=== PATIENT | female | born 1995 | race Caucasian/White ===

== ENCOUNTER 2016-04-24 04:36 | Observation (INO) | payer BC ==
[2016-04-24] MEDS ORDERED: ONDANSETRON 4 MG/2 ML VIAL IVP ONE (04:41)
[2016-04-24] MEDS ORDERED: NS 1,000 ML IV ONE ×3 (05:12→07:35)
--- NOTE | 2016-04-24 05:18 | EDPHY ---
H & P Stated Complaint: vomiting, abd pain Time Seen by Provider: 04/24/16 05:03 HPI/ROS: HPI The patient presents with abdominal pain which began at approximately 10:00 p.m. last night. It started suddenly and has been severe. It is in her upper abdomen and radiates throughout her abdomen. It is sharp in nature. She has had about 5-6 episodes of vomiting ever since. Her last bowel movement was about 12 hours ago and was normal. She has not had any diarrhea. She does not have any fever. She has been taking Humira for the last several years for Crohn 's disease. She is followed by Dr. Kevin and has a colonoscopy pending for Tuesday.. REVIEW OF SYSTEMS Constitutional: No fever, no chills. Eyes: No discharge. ENT: No sore throat. Cardiovascular: No chest pain, no palpitations. Respiratory: No cough, no shortness of breath. Gastrointestinal: No abdominal pain, no vomiting. Genitourinary: No hematuria. Musculoskeletal: No back pain. Skin: No rashes. Neurological: No headache. PMHx: Crohn's disease Soc Hx: College student PHYSICAL General Appearance: Alert, uncomfortable appearing Eyes: Pupils equal and round no pallor or injection ENT, Mouth: Mucous membranes moist Respiratory: There are no retractions, lungs are clear to auscultation Cardiovascular: Regular rate and rhythm Gastrointestinal: Abdomen is soft with tenderness in her upper quadrants without guarding or rebound Neurological: A&O, moves all extremities Skin: Warm and dry, no rashes Musculoskeletal: Neck is supple non tender Extremities: symmetrical, full range of motion Psychiatric: Patient is oriented X 3, there is no agitation Source: Patient Exam Limitations: No limitations - Personal History LMP (Females 10-55): Unknown Current Tetanus/Diphtheria Vaccine: Yes - Medical/Surgical History Hx Asthma: No Hx Chronic Respiratory Disease: No Hx Diabetes: No Hx Cardiac Disease: No Hx Renal Disease: No Hx Cirrhosis: No Hx Alcoholism: No Hx HIV/AIDS: No Hx Splenectomy or Spleen Trauma: No Other PMH: PMHx: Crohn's, anemia. PSHx: denies - Social History Smoking Status: Never smoked Constitutional: Initial Vital Signs Temperature (C) 36.7 C 04/24/16 04:38 Heart Rate 120 H 04/24/16 04:38 Respiratory Rate 17 04/24/16 04:38 Blood Pressure 114/82 H 04/24/16 04:38 O2 Sat (%) 97 04/24/16 04:38 O2 Delivery Mode Nasal Cannula O2 (L/minute) 2 Allergies/Adverse Reactions: sulfa Allergy (Uncoded 05/03/13 21:16) Home Medications: Medication Instructions Recorded Herbals/Supplements -Info Only 1 each PO AD 05/04/13 Sertraline HCl [Zoloft] 50 mg PO DAILY 05/04/13 Vancomycin [Vancocin 250MG (RX)] 250 mg PO QID 05/04/13 azaTHIOprine [Imuran 50 mg (RX)] 50 mg PO TID 05/04/13 Medical Decision Making - Diagnostics Imaging: CT scan abdomen pelvis with IV contrast demonstrates mild wall thickening of the terminal ilium, discussed with Dr. Guerrier of Radiology. ED Course/Re-evaluation: 5:00 a.m.- Initial patient encounter. She is getting IV fluids, Zofran, morphine. I will check basic labs. 7:00 a.m.- The patient has ongoing abdominal pain despite several rounds of pain medication. Her labs are all unremarkable, though we are waiting on a urinalysis. She is awaiting a CT scan of her abdomen currently. I have discussed the case with Dr. Roth of Gastroenterology who recommends fluids and pain medication as needed. They will be able to consult on her as an inpatient and may have further recommendations based on her CT scan. The case was discussed with of the hospitalist service and she agrees for admission. Differential Diagnosis: This is a 20-year-old female with history of Crohn's disease who comes in with vomiting and upper abdominal pain. Differential diagnosis includes Crohn's flare, gastritis, gastroenteritis, biliary colic. - Data Points Laboratory Results: Laboratory Results 04/24/16 05:10 04/24/16 05:10 04/24/16 05:10 WBC 6.85 10^3/uL (3.80-9.50) RBC 4.75 10^6/uL (4.18-5.33) Hgb 14.4 g/dL (12.6-16.3) Hct 40.6 % (38.0-47.0) MCV 85.5 fL (81.5-99.8) MCH 30.3 pg (27.9-34.1) MCHC 35.5 g/dL (32.4-36.7) RDW 12.5 % (11.5-15.2) Plt Count 279 10^3/uL (150-400) MPV 9.7 fL (8.7-11.7) Neut % (Auto) 81.5 H % (39.3-74.2) Lymph % (Auto) 6.4 L % (15.0-45.0) [place] % (Auto) 9.9 % (4.5-13.0) Eos % (Auto) 1.3 % (0.6-7.6) Baso % (Auto) 0.6 % (0.3-1.7) Nucleat RBC Rel Count 0.0 % (0.0-0.2) Absolute Neuts (auto) 5.58 10^3/uL (1.70-6.50) Absolute Lymphs (auto) 0.44 L 10^3/uL (1.00-3.00) Absolute Monos (auto) 0.68 10^3/uL (0.30-0.80) Absolute Eos (auto) 0.09 10^3/uL (0.03-0.40) Absolute Basos (auto) 0.04 10^3/uL (0.02-0.10) Absolute Nucleated RBC 0.00 10^3/uL (0-0.01) Immature Gran % 0.3 % (0.0-1.1) Immature Gran # 0.02 10^3/uL (0.00-0.10) ESR 10 MM/HR (0-20) Sodium 141 mEq/L (134-144) Potassium 3.9 mEq/L (3.5-5.2) Chloride 107 mEq/L (97-110) Carbon Dioxide 23 mEq/l (22-31) Anion Gap 11 mEq/L (8-16) BUN 13 mg/dL (7-23) Creatinine 0.7 mg/dL (0.6-1.0) Estimated GFR > 60 Glucose 94 mg/dL (70-100) Calcium 9.5 mg/dL (8.5-10.4) Total Bilirubin 0.9 mg/dL (0.1-1.4) Conjugated Bilirubin 0.5 mg/dL (0.0-0.5) Unconjugated Bilirubin 0.4 mg/dL (0.0-1.1) AST 26 IU/L (14-46) ALT 31 IU/L (9-52) Alkaline Phosphatase 55 IU/L (38-126) C-Reactive Protein 6.4 mg/L (<10.0) Total Protein 8.0 g/dL (6.3-8.2) Albumin 4.5 g/dL (3.5-5.0) Lipase 57.0 IU/L (23-300) Beta HCG, Qual NEGATIVE Medications Given: Discontinued Medications Hydromorphone HCl (Dilaudid) 0.5 mg IVP EDNOW ONE Stop: 04/24/16 06:38 Last Admin: 04/24/16 06:52 Dose: 0.5 mg Sodium Chloride (Ns) 1,000 mls @ 0 mls/hr IV ONCE ONE PRN Reason: Wide Open Stop: 04/24/16 05:13 Last Admin: 04/24/16 05:13 Dose: 1,000 mls Sodium Chloride (Ns) 1,000 mls @ 0 mls/hr IV ONCE ONE PRN Reason: Wide Open Stop: 04/24/16 06:04 Last Admin: 04/24/16 06:08 Dose: 1,000 mls Morphine Sulfate (Morphine) 4 mg IVP EDNOW ONE Stop: 04/24/16 05:13 Last Admin: 04/24/16 05:21 Dose: 4 mg Ondansetron HCl (Zofran) 4 mg IVP EDNOW ONE Stop: 04/24/16 04:42 Last Admin: 04/24/16 05:11 Dose: 4 mg Departure - Departure Disposition: [facility] Inpatient Acute Clinical Impression: Abdominal pain, Crohn's colitis Condition: Fair Referrals: Tano Glaser MD [Primary Care Provider] - As per Instructions
[2016-04-24 05:21] LABS: % IMMATURE GRANULYOCYTES 0.3 % (0.0-1.1); ABSOLUTE IMMATURE GRANULOCYTES 0.02 10^3/uL (0.00-0.10); ADD DIFF? NO; ADD MORPH? NO; ADD SCAN? NO; ATYPICAL LYMPHOCYTE FLAG 10 (0-99); FRAGMENT RBC FLAG 0 (0-99); HEMATOCRIT 40.6 % (38.0-47.0); HEMOGLOBIN 14.4 g/dL (12.6-16.3); LEFT SHIFT FLG 0 (0-99); LIPEMIA HEMOLYSIS FLAG 90 (0-99); MEAN CELL HEMOGLOBIN 30.3 pg (27.9-34.1); MEAN CELL HEMOGLOBIN CONCENTR. 35.5 g/dL (32.4-36.7); MEAN CELL VOLUME 85.5 fL (81.5-99.8); MEAN PLATELET VOLUME 9.7 fL (8.7-11.7); PLATELET CLUMPS FLAG 30 (0-99); PLATELET COUNT 279 10^3/uL (150-400); RED BLOOD CELL COUNT 4.75 10^6/uL (4.18-5.33); RED CELL DISTRIBUTION WIDTH 12.5 % (11.5-15.2)
[2016-04-24 05:46] LABS: ALANINE AMINOTRANSFERASE 31 IU/L (9-52); ALBUMIN 4.5 g/dL (3.5-5.0); ALKALINE PHOSPHATASE 55 IU/L (38-126); ANION GAP 11 mEq/L (8-16); ASPARTATE AMINOTRANSFERASE 26 IU/L (14-46); BILIRUBIN,TOTAL 0.9 mg/dL (0.1-1.4); BILIRUBIN-CONJUGATED 0.5 mg/dL (0.0-0.5); BILIRUBIN-UNCONJUGATED 0.4 mg/dL (0.0-1.1); CALCIUM 9.5 mg/dL (8.5-10.4); CARBON DIOXIDE 23 mEq/l (22-31); CHLORIDE 107 mEq/L (97-110); CREATININE 0.7 mg/dL (0.6-1.0); GLOMERULAR FILTRATION RATE > 60; GLUCOSE 94 mg/dL (70-100); POTASSIUM 3.9 mEq/L (3.5-5.2); SODIUM 141 mEq/L (134-144)
[2016-04-24 05:58] LABS: SEDIMENTATION RATE 10 MM/HR (0-20)
[2016-04-24 06:05] LABS: C-REACTIVE PROTEIN 6.4 mg/L (<10.0)
[2016-04-24] MEDS ORDERED: HYDROmorphONE/DILAUDID 1 MG/ML SYR IVP ONE (06:37)
[2016-04-24] MEDS ORDERED: IOPAMIDOL (ISOVUE-300) 100 ML BTL IV ONE (06:49)
[2016-04-24 11:58] LABS: COLOR YELLOW; LEUKOCYTE ESTERASE,URINE NEGATIVE (NEGATIVE); NITRITE,URINE NEGATIVE (NEGATIVE)
[2016-04-24] MEDS: methylPREDNISolone SOD SUCC 125 MG/2 ML VIAL IVP ONE ×2 (12:25→14:03)
[2016-04-24] MEDS: D5W 1/2 NS W/ 20 KCl/L 1,000 ML IV SCH ×2 (12:25→20:30)
[2016-04-24] MEDS: DICYCLOMINE 10 MG CAP PO PRN ×2 (12:30→18:39)
--- NOTE | 2016-04-24 12:38 | GCON ---
[f rep st] CONSULTATION GI INPATIENT CONSULTATION DATE OF CONSULTATION: 04/24/2016 REFERRING PHYSICIAN: Adwoa Simpson MD HISTORY OF PRESENT ILLNESS: Gina is a 20-year-old white female whom I am asked to see in consultation for a chief complaint of abdominal pain. This occurred acutely last night, at 10 p.m. She describes diffuse generalized abdominal pain, but worse in her upper abdomen. It is bilateral. With this, she has had nausea, vomiting. She denies diarrhea. She states she feels "warm, " but denies fever. She denies blood in her stool. She has a known history of Crohn disease, which at least on a colonoscopy last year involved mostly the terminal ileum and the ileocecal valve. For this, she is on Humira every other week. She states she has done quite well for almost 3 years. When she does have flares of her Crohn's, she states the symptoms are somewhat similar to her admitting presentation, with abdominal pain. She is normally seen by Dr. Glaser. She was seen recently in our GI office, April 12 , by GAIL Umana. There is some report that she also has Crohn's of the stomach. Upper endoscopy in 2013 had some mild findings noted, with very unremarkable biopsies, however. Of note, she is scheduled for a colonoscopy in 1 week, for somewhat unclear reasons. Her last colonoscopy was with Dr. Glaser on February 25, 2015. PAST MEDICAL HISTORY: 1. As above. 2. Otherwise, unremarkable. MEDICATIONS: She is on Zoloft. Outpatient medications include the above. ALLERGIES: Include sulfur. SOCIAL HISTORY: She is single. Her mom's name is Rocio. Her boyfriend's name is Mars. FAMILY HISTORY: Positive for Crohn's. REVIEW OF SYSTEMS: Positive pertinent review of systems as per my HPI. Otherwise, her review of systems is negative, making a total of 10 systems. PHYSICAL EXAM: GENERAL: Reveals a nontoxic-appearing woman. VITAL SIGNS: Stable. SKIN: Warm, dry. HEENT: Pupils equal, round, reactive to light and accommodation. Oropharynx without masses, moist mucosa. NECK: Without thyromegaly, no lymphadenopathy. HEART: Normal S2, normal PMI. LUNGS: Clear to auscultation and percussion anteriorly. ABDOMEN: Diffuse tenderness throughout. No rebound. RECTAL: Deferred. EXTREMITIES: Without cyanosis or clubbing. NEUROLOGIC: She is grossly nonfocal, with cranial nerves grossly intact. Orientation, insight appropriate. MUSCULOSKELETAL: Strength is grossly normal throughout, normal station. LABORATORY DATA: Include negative beta hCG. Normal CBC. Normal ESR, CRP. Normal lipase. Normal comprehensive metabolic panel. Urinalysis is pending. CT scan of the abdomen and pelvis with IV contrast is unremarkable, except for possibly some very mild terminal ileitis. ASSESSMENT: Acute generalized abdominal pain, with nausea, vomiting. This may represent just a viral gastroenteritis. Irritable bowel syndrome is also possible. A flare of her known Crohn's is possible, but somewhat less likely. Her symptoms are diffuse, which is unusual for Crohn's. In addition, besides negative inflammatory markers, her CT scan is relatively unremarkable. However , she does equate these symptoms to past Crohn's flare symptoms. PLAN: 1. IV fluids. 2. Dicyclomine as needed. 3. Regular diet. 4. In case this does represent a mild flare of her Crohn's, we will begin IV Solu-Medrol, but at a relatively low dose. If this helps, upon discharge, we can use a short course of Entocort. Most of her recent documented Crohn's involved just the ileum and ileocecal valve. 5. Depending on how she does, we might cancel her colonoscopy scheduled as an outpatient next week, or potentially change it to Dr. Glaser. Thank you for allowing me to help in the care of this patient. /[id number]/MODL MTDD
[2016-04-24] MEDS ORDERED: ALPRAZolam 0.5 MG TAB PO PRN (13:36)
[2016-04-24] MEDS ORDERED: Lisdexamfetamine Dimesylate [Vyvanse] 50 MG PO PRN (13:36)
[2016-04-24] MEDS ORDERED: ACETAMINOPHEN 325 MG TAB PO PRN (13:38)
[2016-04-24] MEDS ORDERED: PROMETHAZINE HCL 25 MG/ML INJ IVP PRN (13:38)
[2016-04-24] MEDS ORDERED: PROMETHAZINE HCL 25 MG TAB PO PRN (13:38)
[2016-04-24] MEDS ORDERED: ONDANSETRON 4 MG/2 ML VIAL IVP PRN (13:38)
[2016-04-24] MEDS ORDERED: ONDANSETRON DISINTEGRATING 4 MG TAB PO PRN (13:38)
--- NOTE | 2016-04-24 14:03 | GHP ---
[f rep st] HISTORY AND PHYSICAL DATE OF ADMISSION: 04/24/2016 HISTORY OF PRESENT ILLNESS: The patient is a 20-year-old female with a history of Crohn disease predominantly located in the ileocecal valve and internal iliac , who presents with abdominal pain. She feels this is similar to her previous episodes of Crohn flare. She has had some nausea and vomiting, but no diarrhea. Diarrhea not typically part of her Crohn flare. She does have a history of 1 episode of C difficile in the past. She has not had subjective fever, chills. No melena or bright red blood per rectum or hematemesis or coffee-grounds emesis. She does not smoke cigarettes. Drinks minimal alcohol. There has been no recent travel. No one around has been sick. REVIEW OF SYSTEMS: Complete 10-point review of systems conducted, and negative except as noted in HPI. PAST MEDICAL HISTORY: Of Crohn's, fatigue, depression. ALLERGIES: Sulfa. HOME MEDICATIONS: Humira, sertraline, norethindrone, estradiol, multivitamin, dextroamphetamine, and alprazolam at night. SOCIAL HISTORY: Much has been in the [facility]. She is a student at the [employer]. Mother is at the bedside. FAMILY HISTORY: Her aunt had Crohn disease. Her aunt is her mother's identical twin. PHYSICAL EXAM: PRESENTING VITAL SIGNS: Temperature 36.7, blood pressure 114/82 , pulse 120, breathing 17 times a minute, 97% on room air. GENERAL: In no acute distress. HEENT: Sclerae anicteric. Oropharynx clear. Mucous membranes moist. NECK. No lymphadenopathy. JVD. LUNGS: Clear to auscultation bilaterally. HEART: S1, S2. ABDOMEN: Soft. Bowel sounds are hypoactive, but present. There is no rebound or guarding. It is nondistended. LOWER EXTREMITIES: Without edema. Calves are nontender. SKIN: Without rash. NEUROLOGIC: Nonfocal. LABORATORY DATA: White count 6.8, hematocrit 40.6, platelets are 279,000. Sodium 141, potassium 3.9, chloride 107, bicarbonate 22, BUN 13, creatinine 0.7 , glucose 94, LFTs normal. Lipase normal. Beta hCG is negative. UA is unremarkable. Abdominal CT images reviewed/interpreted by me, shows possible thickening of the terminal ileum. I discussed the case with Dr. Carrington Roth of GI. ASSESSMENT/PLAN: A 20-year-old female, mild Crohn flare. 1. Mild Crohn flare: The patient presented with abdominal pain and a paucity of other findings. At this point in time, I think it is reasonable and appropriate to treat her for Crohn flare as has been initiated by Dr. Roth. 2. History of Clostridium difficile: She is not having diarrhea. Will repeat Clostridium difficile follow up on the results. 3. Prophylaxis: Pharmacologic prophylaxis indicated. 4. Nausea: IV Phenergan, IV Zofran. 5. Pain: IV Dilaudid. /[id number]/MODL MTDD
[2016-04-24] MEDS: HYDROmorphONE/DILAUDID 1 MG/ML SYR IVP PRN ×3 (14:19→22:46)
--- NOTE | 2016-04-24 16:23 | CT ---
CT Scan of the Abdomen and Pelvis (With Contrast) 24 April 2016 at 0706 Hours Indication: Abdominal pain. History of Crohn's. Comparison: April 2013. Technique: 80 mL of Isovue-300 were given intravenously by machine power injection. Multidetector [facility] imaging was performed from the diaphragm to the symphysis pubis. Dose reduction techniques w ere utilized. Findings Abdomen: The lung bases are clear. No focal liver lesion is identified. Gallbladder is unremarkable. Pancreas is normal in size and appearance. Spleen is unremarkable. Both adrenal glands are normal in size and appearance. Both kidneys enhance normally without evidence for mass or hydronephrosis. A few scattered mesenteric lymph nodes are seen which are smaller than the comparison exam. Pelvis: There is mild bowel wall thickening in the distal ileum with no significant stranding in the adjacent mesentery, a little less predominant than the comparison exam. No evidence for small bowel o bstruction. Appendix is visualized and normal in size and appearance. No significant free fluid in th e pelvis. No evidence for bladder calculus. Impression: Findings suggesting mild bowel wall thickening in the distal ileum which could be seconda ry to patient's underlying Crohn disease. No evidence for small bowel obstruction. Prior visualized m esenteric lymphadenopathy is less predominant, likely reactive. Results discussed with Dr. Adwoa Simpson at 0719 hours on 24 April 2016.
[2016-04-24] MEDS: methylPREDNISolone SOD SUCC 40 MG/ML VIAL IVP SCH (20:31)
[2016-04-24 20:37] VITALS: RESP 16
[2016-04-24] MEDS ORDERED: ZOLPIDEM TARTRATE 5 MG TAB PO PRN (21:00)
[2016-04-24] MEDS ORDERED: NORETHINDRONE E ESTRADIOL IRON PO SCH (21:00)
[2016-04-24] MEDS ORDERED: SERTRALINE HCL 100 MG TAB PO SCH (21:00)
[2016-04-25] MEDS: DICYCLOMINE 10 MG CAP PO PRN ×2 (05:51→12:12)
[2016-04-25] MEDS: D5W 1/2 NS W/ 20 KCl/L 1,000 ML IV SCH (05:51)
[2016-04-25] MEDS: HYDROmorphONE/DILAUDID 1 MG/ML SYR IVP PRN ×2 (05:51→10:20)
[2016-04-25 06:00] LABS: % IMMATURE GRANULYOCYTES 0.2 % (0.0-1.1); ABSOLUTE IMMATURE GRANULOCYTES 0.01 10^3/uL (0.00-0.10); ADD DIFF? NO; ADD MORPH? NO; ADD SCAN? NO; ATYPICAL LYMPHOCYTE FLAG 50 (0-99); FRAGMENT RBC FLAG 0 (0-99); HEMATOCRIT 35.9 % (38.0-47.0); HEMOGLOBIN 12.5 g/dL (12.6-16.3); LEFT SHIFT FLG 0 (0-99); LIPEMIA HEMOLYSIS FLAG 90 (0-99); MEAN CELL HEMOGLOBIN 30.9 pg (27.9-34.1); MEAN CELL HEMOGLOBIN CONCENTR. 34.8 g/dL (32.4-36.7); MEAN CELL VOLUME 88.9 fL (81.5-99.8); MEAN PLATELET VOLUME 10.1 fL (8.7-11.7); PLATELET CLUMPS FLAG 20 (0-99); PLATELET COUNT 239 10^3/uL (150-400); RED BLOOD CELL COUNT 4.04 10^6/uL (4.18-5.33); RED CELL DISTRIBUTION WIDTH 12.6 % (11.5-15.2)
[2016-04-25 06:12] LABS: ANION GAP 5 mEq/L (8-16); CALCIUM 8.1 mg/dL (8.5-10.4); CARBON DIOXIDE 27 mEq/l (22-31); CHLORIDE 107 mEq/L (97-110); CREATININE 0.6 mg/dL (0.6-1.0); GLOMERULAR FILTRATION RATE > 60; GLUCOSE 139 mg/dL (70-100); POTASSIUM 4.5 mEq/L (3.5-5.2); SODIUM 139 mEq/L (134-144)
[2016-04-25 08:55] VITALS: BP 82/52; PULSE 71; TEMP 98; O2SAT 95
[2016-04-25] MEDS: methylPREDNISolone SOD SUCC 40 MG/ML VIAL IVP SCH (08:59)
[2016-04-25] MEDS ORDERED: ENOXAPARIN 40 MG/0.4 ML SYR SC SCH (09:00)
[2016-04-25] MEDS ORDERED: MULTIVITAMINS 1 EACH TAB PO SCH (09:00)
--- NOTE | 2016-04-25 11:06 | HOSPPROG ---
Hospitalist Progress Note Assessment/Plan: 20 yo F w possible mild crohn's flare abd pain: improved will dc on entocort and nausea meds home today Subjective: feels much better. eating. ready for dc Objective: Vital Signs Temp Pulse Resp BP Pulse Ox 36.6 C 71 16 82/52 L 95 04/25/16 08:52 04/25/16 08:52 04/25/16 08:52 04/25/16 08:52 04/25/16 08:52 Laboratory Results 04/25/16 05:40 04/25/16 05:40 04/24/16 04/25/16 04/26/16 05:59 05:59 05:59 Intake Total 1200 Balance 1200 - Physical Exam Constitutional: no apparent distress, appears nourished Eyes: PERRL, anicteric sclera Ears, Nose, Mouth, Throat: moist mucous membranes, hearing normal Cardiovascular: regular rate and rhythym, no murmur, rub, or gallop Respiratory: no respiratory distress, no rales or rhonchi Gastrointestinal: normoactive bowel sounds, soft, non-tender abdomen, No guarding, No rebound, No distension Genitourinary: no bladder fullness, No salas in urethra Skin: warm, normal color Musculoskeletal: full muscle strength, no muscle tenderness Neurologic: AAOx3 ICD10 Worksheet Patient Problems: Problems Problem Status Diagnosed Abdominal pain Acute Crohn's colitis Acute Clostridium difficile infection Acute SIRS (systemic inflammatory response syndrome) Acute
--- NOTE | 2016-04-25 11:22 | SOAPPROG ---
SOAP Progress Note Assessment/Plan: Assessment/Plan: Acute abdominal pain, nausea, vomiting. Now, doing better. ? viral gastroenteritis. ? mild flare of Crohn's. - agree with d/c home. Would d/c her on entocort, 9 mg daily for six weeks, then 6 mg daily for two weeks, then none. - I will arrange G.I. f/u with Dr. Glaser (her outpt G.I. doc). I will also d/w him whether he wishes to do a colonoscopy on her as an outpt. or not. Thanks! 04/25/16 11:10 Subjective: cc: abdominal pain Doing better, with much less abdominal pain, N/V. No rigors. Objective: Vital Signs Temp Pulse Resp BP Pulse Ox 36.6 C 71 16 82/52 L 95 04/25/16 08:52 04/25/16 08:52 04/25/16 08:52 04/25/16 08:52 04/25/16 08:52 Laboratory Results 04/25/16 05:40 04/25/16 05:40 04/24/16 04/25/16 04/26/16 05:59 05:59 05:59 Intake Total 1200 Balance 1200 Physical Exam - Physical Exam General Appearance: WD/WN, alert, no apparent distress EENT: PERRL/EOMI, normal ENT inspection, pharynx normal, TMs normal Neck: non-tender, full range of motion, supple, normal inspection Respiratory: chest non-tender, lungs clear, normal breath sounds Cardiac/Chest: normal peripheral pulses, regular rate, rhythm Peripheral Pulses: 2+: carotid (R), carotid (L), femoral (R), femoral (L), dorsalis-pedis (R), dorsalis-pedis (L) Abdomen: normal bowel sounds, non-tender, soft Pelvic Exam: deferred Rectal: deferred Back: Normal inspection Skin: normal color, warm/dry Lymphatic: no adenopathy Extremities: normal range of motion, non-tender, normal inspection, normal capillary refill Neuro/Psych: no motor/sensory deficits, alert, normal mood/affect, oriented x 3 ICD10 Worksheet Patient Problems: Problems Problem Status Diagnosed Abdominal pain Acute Crohn's colitis Acute Clostridium difficile infection Acute SIRS (systemic inflammatory response syndrome) Acute
--- NOTE | 2016-04-25 11:40 | GDS ---
[f rep st] DISCHARGE SUMMARY DISCHARGE DIAGNOSES: 1. Possible Crohn flare. 2. History of Crohn disease. 3. Depression. HOSPITAL COURSE: Please see admission history and physical by Dr. Deangelo Horne. The patient prese nted with abdominal pain. CT was somewhat unremarkable, showed some thickening at the terminal ileum . This was consistent with her site of Crohn's. The patient was placed on steroids and pain medicin es as well as some nausea medicines with improvement. She was eating and euvolemic and amenable for discharge. She did not have diarrhea. Stool studies were not sent. She does have a history of C difficile. I discussed the case with Dr. Carrington Roth. Recommend Entocort 4-week taper which has been provided as well as a limited prescription for anti nausea medicines and p.o. pain medicines. /[id number]/MODL
[2016-04-25] MEDS ORDERED: ADDERALL 10 MG TAB PO PRN (12:00)
== END 2016-04-25 10:40 | disposition home or self-care (01) ==
LOC: FOB 10:37
PROVIDERS: ADMIT Internal Medicine; ATTEND Internal Medicine
DX: R10.84 Generalized abdominal pain (principal); R11.2 Nausea with vomiting, unspecified; K50.90 Crohn's disease, unspecified, without complications; F32.9 Major depressive disorder, single episode, unspecified; Z79.52 Long term (current) use of systemic steroids; Z86.19 Personal history of other infectious and parasitic diseases; Z88.2 Allergy status to sulfonamides
CPT/HCPCS: 74177; G0378; 96374; J1170; J2405; Q9967

== ENCOUNTER 2016-10-21 13:34 | Emergency (ER) | payer BC ==
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
[2016-10-21 16:39] VITALS: RESP 15
[2016-10-21 17:48] VITALS: BP 103/64; PULSE 57; TEMP 98.2; O2SAT 96
== END 2016-10-21 17:47 | disposition home or self-care (01) ==
DX: S06.0X0A Concussion without loss of consciousness, initial encounter (principal); W20.8XXA Other cause of strike by thrown, projected or falling object, initial encounter; Y92.310 Basketball court as the place of occurrence of the external cause
CPT/HCPCS: L0172

== ENCOUNTER 2018-07-04 16:38 | Inpatient (IN) | payer BC, OTHER ==
[2018-07-04] MEDS ORDERED: ONDANSETRON 4 MG/2 ML VIAL ONE (17:39)
[2018-07-04] MEDS ORDERED: HYDROmorphONE/DILAUDID 2 MG/ML INJ IVP ONE ×2 (17:43→18:47)
[2018-07-04] MEDS ORDERED: ONDANSETRON 4 MG/2 ML VIAL IVP PRN (17:43)
[2018-07-04] MEDS ORDERED: NS 1,000 ML IV ONE (17:43)
--- NOTE | 2018-07-04 17:49 | EDPHY ---
General - History Smoking Status: Never smoked Time Seen by Provider: 07/04/18 17:42 Narrative: CLINICAL IMPRESSION: Nausea, vomiting, abdominal pain, UTI ASSESSMENT/PLAN: Patient is a 22-year-old female with a significant history of Crohn's status post remote bowel resection as well as recent ovarian cystic rupture presents to the emergency department with nausea, vomiting, abdominal pain, hematuria and multiple bloody stools. Patient is afebrile, she is uncomfortable appearing however not toxic-appearing. Her abdomen was soft, nondistended with diffuse tenderness and voluntary guarding. CBC revealed no evidence of leukocytosis. H&H was mildly low however similar to last visit. There was no evidence of significant acute blood loss anemia. She was guaiac negative on my examination. BMP, lipase and hepatic panel were all grossly unremarkable. Patient with concerning history of Crohn's status post bowel resection, proceeded with CT abdomen and pelvis. CT revealed no evidence of wall thickening, abscess, perforation or obstruction. Urinalysis was performed, revealed WBCs and bacteria; this was sent for culture. I have a low suspicion for recurrent ovarian cystic rupture as there was no mention of adnexal mass or significant free fluid in the pelvis on CT; she also states that this does not feel similar at all. negative, rules out ectopic. Patient with multiple reported emergency department visits over the last several weeks in [place], [place] and [place]. Query ulcerative colitis flare in light of multiple episodes of bloody diarrhea today. The patient was given Rocephin for urinary tract infection. She will be admitted to the hospitalist service for further pain control and observation. I spoke directly with Dr. Bacon who will be the admitting physician. During the patient's emergency department visit she did have low blood pressure ranging from mid 80s systolic to upper 90 systolic. In reviewing her records she is noted to have low blood pressures in the past, I do not suspect sepsis. On repeat examination prior to transfer to the floor she is much more comfortable appearing however still with diffuse abdominal tenderness with voluntary guarding, no evidence of a surgical abdomen. DIFFERENTIAL DX: Abdominal pain including but not limited to appendicitis, cholecystitis, gastritis, bowel obstruction, perforation, abscess, ovarian cyst and urinary tract infection. ED COURSE: 1754: Case discussed with Dr. Palacio, she will evaluate this patient as well. 1923: On repeat examination the patient reports that she is feeling mildly better, I discussed her reassuring findings however she is still having a significant amount of pain in the right mid and upper abdomen. Discussed admission for observation for further pain control. CHIEF COMPLAINT: Nausea, vomiting, abdominal pain, hematuria and bloody stools HPI: Patient is a 22-year-old female with a significant history of Crohn's status post bowel resection this past January as well as recent ovarian cystic rupture who presents to the emergency department with nausea, vomiting and abdominal pain. Patient reports initially 2 weeks ago she was traveling in [place] on a work trip, she started to experience right lower quadrant pain, was seen and evaluated in the emergency department and admitted for reported unstable vital signs and cystic rupture. Patient was discharged, flew back to [facility] when she proceeded to the emergency department again for re- evaluation per recommendation at her discharge. Patient was seen and evaluated again by dictionary editor last Tuesday where they performed a n ultrasound, revealed small multiple cysts and resolving recent cystic rupture, no other acute findings. Patient continues to feel poorly, she flew back from [facility] to stay with her mom and arrived last evening. She reports today that she had a sudden onset of nausea and vomiting with new and different abdominal pain located in her right mid abdomen. She reports subjective fever, has been taking Tylenol for both fever and pain with little relief. Patient is also experiencing hematuria and bright red blood per rectum with multiple loose stools today. She reports 4 episodes of emesis, denies any hematemesis. Her appetite has been down. She denies any chest pain or shortness of breath. She is generally feeling unwell. She has never had issues with hematuria, denies any dysuria or increased frequency. She is currently menstruating and feels certain that this is not blood she is seeing from her menstruation. Patient reports 5 loose bloody stools today, denies any rectal pain or history of hemorrhoids. PMH: Crohn's Pertinent Past Surgical History: Bowel resection Family History: Not contributory Social History: Denies cigarette smoking or illicit drug use REVIEW OF SYSTEMS: All other systems negative Constitutional: Fever and decreased appetite. Eyes: No discharge, vision change ENT: No sore throat, congestion, ear pain. Cardiovascular: No chest pain, no palpitations. Respiratory: No cough, no shortness of breath. Gastrointestinal: Abdominal pain, vomiting, bloody diarrhea. Genitourinary: Hematuria, no dysuria or increased frequency. No flank pain or pelvic pain. Musculoskeletal: No back pain, joint swelling, joint pain, myalgias. Skin: No rashes, color change. Neurological: No headache, dizziness, weakness. PHYSICAL EXAM: General Appearance: Alert, patient is very uncomfortable appearing however not toxic-appearing. HENT: Normocephalic, atraumatic. Bilateral external ears are normal. Bilateral tympanic membranes are normal with pearly etienne reflex. Nares are clear, mucosa is pink. Oropharynx is clear however mucosa is dry, uvula is midline. There is no tonsillar enlargement or exudate. The dentition is normal. Eyes: PERRLA, no acute vision change, nystagmus, swelling, discharge, pain or photosensitivity. Conjunctiva pale, no injection Neck: Supple, nontender, no lymphadenopathy, no midline pain, FROM. Respiratory: There are no retractions, lungs are clear to auscultation. Cardiac: Regular rate and rhythm, no murmurs or gallops. Gastrointestinal: Patient's abdomen is soft, nondistended. There is a well-healed incision in the mid upper abdomen milad umbilicus and lower abdomen without evidence of hernia. Patient is diffusely tender with voluntary guarding. No appreciable blood on rectal exam, stool is light brown. No hemorrhoids or rectal tenderness. Neurological: Alert and oriented x 3, CN 2-12 grossly intact, normal gait no ataxia, DTR's intact, normal sensation and strength Skin: Warm, dry, no rashes, no nodules on palpation. Musculoskeletal: Extremities are symmetrical, full range of motion, no tenderness, deformity, swelling, or erythema. Psychiatric: Patient is oriented X 3, there is no agitation. MEDICAL DECISION MAKING: Patient was seen independently. Secondary supervising physician at time of evaluation was Dr. Palacio, she also evaluated this patient. Diagnosis: Nausea, vomiting, abdominal pain, hematuria, bloody diarrhea. New, requires workup Summary: See Assessment and Plan for summary of ED visit Clinical lab tests: ordered / reviewed. Independent visualization of images, tracing, or specimens: Yes. Decision to obtain medical records or history from someone other than the patient: Yes, mother Review / Summarize previous medical records: Yes Discussed patient with another provider: Yes, Dr. Palacio Patient Progress: Stable, admit. (Raysa Jimenez) - Diagnostics Imaging Results: Imaging Impressions Abdomen CT 07/04/18 17:43 Impression: 1. Motion limited study with mild stool in the proximal colon with no acute intra-abdominal findings. 2. New indistinct left lower lobe nodules, most likely inflammatory or infectious. Short-term follow-up CT is recommended in 3 months to document resolution. 3. Additional findings as above. Findings discussed with Raysa Jimenez PA-C on 07/04/2018 at 18:45. Discussion: This patient was seen and examined by me. On physical exam, she is pale, abdomen is soft, right abdominal tenderness present without peritoneal signs. CT scan of the abdomen pelvis is unremarkable. Continues to have severe pain despite IV Dilaudid. Will admit for further evaluation to the hospitalist service. (Geovanna Palacio) - Objective Vital Signs: Initial Vital Signs Temperature (C) 37 C 07/04/18 16:50 Heart Rate 96 07/04/18 16:50 Respiratory Rate 16 07/04/18 16:50 Blood Pressure 98/63 L 07/04/18 16:50 O2 Sat (%) 91 L 07/04/18 16:50 O2 Delivery Mode Nasal Cannula O2 (L/minute) 4 Allergies/Adverse Reactions: sulfa Allergy (Intermediate, Uncoded 07/04/18 16:49) Vomiting Home Medications: Medication Instructions Recorded ALPRAZolam [Xanax 0.5 MG (*)] 0.5 mg PO HS PRN 04/24/16 Dextroamphetamine/Amphetamine 10 mg PO DAILY@1200 PRN 04/24/16 [Dextroamp-Amphetamin 10 mg Tab] Lisdexamfetamine Dimesylate 50 mg PO DAILY PRN 04/24/16 [Vyvanse] Multivitamins [Multivitamin (*)] 1 each PO DAILY 04/24/16 Norethindrone-E.estradiol-Iron 1 each PO DAILY 04/24/16 [Blisovi Fe 1.5-30 Tablet] Sertraline HCl [Zoloft 100mg (*)] 50 mg PO HS 04/24/16 Budesonide [Entocort EC] 9 mg PO DAILY #0 capdr...er 04/25/16 Hydrocodone/APAP 5/325 [Victor 1 each PO Q4-6PRN PRN #10 tab 10/21/16 5/325 (*)] Remicade Inj 100 mg (*) 07/04/18 Laboratory Results: Laboratory Results 07/04/18 17:27 07/04/18 17:27 07/04/18 07/04/18 07/04/18 17:47 17:40 17:27 WBC RBC Hgb POC Hgb 12.2 gm/dL L gm/dL (12.6-16.3) Hct POC Hct 36 % L % (38-47) MCV MCH MCHC RDW Plt Count MPV Neut % (Auto) Lymph % (Auto) [place] % (Auto) Eos % (Auto) Baso % (Auto) Nucleat RBC Rel Count Absolute Neuts (auto) Absolute Lymphs (auto) Absolute Monos (auto) Absolute Eos (auto) Absolute Basos (auto) Absolute Nucleated RBC Immature Gran % Immature Gran # POC Sodium 143 mEq/L mEq/L (135-145) Sodium POC Potassium 3.5 mEq/L mEq/L (3.3-5.0) Potassium POC Chloride 105 mEq/L mEq/L (97-110) Chloride Carbon Dioxide POC Total CO2 23 mEq/L mEq/L (22-31) Anion Gap POC BUN 11 mg/dL mg/dL (7-23) BUN Creatinine POC Creatinine 0.6 mg/dL mg/dL (0.6-1.0) Estimated GFR Glucose POC Glucose 85 mg/dL mg/dL (70-100) Calcium Total Bilirubin Conjugated Bilirubin Unconjugated Bilirubin AST ALT Alkaline Phosphatase Total Protein Albumin Lipase Beta HCG, Qual Urine Color Urine Appearance Urine pH Ur Specific [place] Urine Protein Urine Ketones Urine Blood Urine Nitrate Urine Bilirubin Urine Urobilinogen Ur Leukocyte Esterase Urine RBC Urine WBC Ur Epithelial Cells Calcium Oxalate Crystal Urine Bacteria Urine Mucus Urine Glucose Stool Occult Bld Scrn NEGATIVE (NEGATIVE) Patient ABO/Rh A POSITIVE Antibody Screen NEGATIVE 07/04/18 07/04/18 07/04/18 17:27 17:27 17:27 WBC 7.14 10^3/uL 10^3/uL (3.80-9.50) RBC 4.50 10^6/uL 10^6/uL (4.18-5.33) Hgb 12.5 g/dL L g/dL (12.6-16.3) POC Hgb Hct 36.6 % L % (38.0-47.0) POC Hct MCV 81.3 fL L fL (81.5-99.8) MCH 27.8 pg L pg (27.9-34.1) MCHC 34.2 g/dL g/dL (32.4-36.7) RDW 14.8 % % (11.5-15.2) Plt Count 339 10^3/uL 10^3/uL (150-400) MPV 9.9 fL fL (8.7-11.7) Neut % (Auto) 53.7 % % (39.3-74.2) Lymph % (Auto) 37.1 % % (15.0-45.0) [place] % (Auto) 6.9 % % (4.5-13.0) Eos % (Auto) 1.4 % % (0.6-7.6) Baso % (Auto) 0.8 % % (0.3-1.7) Nucleat RBC Rel Count 0.0 % % (0.0-0.2) Absolute Neuts (auto) 3.83 10^3/uL 10^3/uL (1.70-6.50) Absolute Lymphs (auto) 2.65 10^3/uL 10^3/uL (1.00-3.00) Absolute Monos (auto) 0.49 10^3/uL 10^3/uL (0.30-0.80) Absolute Eos (auto) 0.10 10^3/uL 10^3/uL (0.03-0.40) Absolute Basos (auto) 0.06 10^3/uL 10^3/uL (0.02-0.10) Absolute Nucleated RBC 0.00 10^3/uL 10^3/uL (0-0.01) Immature Gran % 0.1 % % (0.0-1.1) Immature Gran # 0.01 10^3/uL 10^3/uL (0.00-0.10) POC Sodium Sodium 139 mEq/L mEq/L (135-145) POC Potassium Potassium 3.8 mEq/L mEq/L (3.5-5.2) POC Chloride Chloride 105 mEq/L mEq/L (97-110) Carbon Dioxide 22 mEq/l mEq/l (22-31) POC Total CO2 Anion Gap 12 mEq/L mEq/L (6-14) POC BUN BUN 12 mg/dL mg/dL (7-23) Creatinine 0.7 mg/dL mg/dL (0.6-1.0) POC Creatinine Estimated GFR > 60 Glucose 85 mg/dL mg/dL (70-100) POC Glucose Calcium 9.3 mg/dL mg/dL (8.5-10.4) Total Bilirubin 0.4 mg/dL mg/dL (0.1-1.4) Conjugated Bilirubin 0.3 mg/dL mg/dL (0.0-0.5) Unconjugated Bilirubin 0.1 mg/dL mg/dL (0.0-1.1) AST 18 IU/L IU/L (14-46) ALT 30 IU/L IU/L (9-52) Alkaline Phosphatase 46 IU/L IU/L (38-126) Total Protein 8.1 g/dL g/dL (6.3-8.2) Albumin 4.8 g/dL g/dL (3.5-5.0) Lipase 95 IU/L IU/L (23-300) Beta HCG, Qual NEGATIVE Urine Color Urine Appearance Urine pH Ur Specific [place] Urine Protein Urine Ketones Urine Blood Urine Nitrate Urine Bilirubin Urine Urobilinogen Ur Leukocyte Esterase Urine RBC Urine WBC Ur Epithelial Cells Calcium Oxalate Crystal Urine Bacteria Urine Mucus Urine Glucose Stool Occult Bld Scrn Patient ABO/Rh Antibody Screen 07/04/18 16:55 WBC RBC Hgb POC Hgb Hct POC Hct MCV MCH MCHC RDW Plt Count MPV Neut % (Auto) Lymph % (Auto) [place] % (Auto) Eos % (Auto) Baso % (Auto) Nucleat RBC Rel Count Absolute Neuts (auto) Absolute Lymphs (auto) Absolute Monos (auto) Absolute Eos (auto) Absolute Basos (auto) Absolute Nucleated RBC Immature Gran % Immature Gran # POC Sodium Sodium POC Potassium Potassium POC Chloride Chloride Carbon Dioxide POC Total CO2 Anion Gap POC BUN BUN Creatinine POC Creatinine Estimated GFR Glucose POC Glucose Calcium Total Bilirubin Conjugated Bilirubin Unconjugated Bilirubin AST ALT Alkaline Phosphatase Total Protein Albumin Lipase Beta HCG, Qual Urine Color YELLOW Urine Appearance MODERATELY TURBID Urine pH 5.0 (5.0-7.5) Ur Specific [place] 1.030 (1.002-1.030) Urine Protein 1+ H (NEGATIVE) Urine Ketones NEGATIVE (NEGATIVE) Urine Blood 3+ H (NEGATIVE) Urine Nitrate NEGATIVE (NEGATIVE) Urine Bilirubin NEGATIVE (NEGATIVE) Urine Urobilinogen NEGATIVE EU EU (0.2-1.0) Ur Leukocyte Esterase 1+ H (NEGATIVE) Urine RBC 15-25 /hpf H /hpf (0-3) Urine WBC 15-25 /hpf H /hpf (0-3) Ur Epithelial Cells 2+ /lpf H /lpf (NONE-1+) Calcium Oxalate Crystal PRESENT /hpf /hpf (NONE-1+) Urine Bacteria 1+ /hpf H /hpf (NONE SEEN) Urine Mucus 2+ /lpf H /lpf (NONE-1+) Urine Glucose NEGATIVE (NEGATIVE) Stool Occult Bld Scrn Patient ABO/Rh Antibody Screen Medications Given: Discontinued Medications Hydromorphone HCl (Dilaudid) 0.5 mg IVP EDNOW ONE Stop: 07/04/18 17:44 Last Admin: 07/04/18 17:51 Dose: 0.5 mg Hydromorphone HCl (Dilaudid) 0.5 mg IVP EDNOW ONE Stop: 07/04/18 18:48 Last Admin: 07/04/18 18:56 Dose: 0.5 mg Sodium Chloride (Ns) 1,000 mls @ 0 mls/hr IV ONCE ONE PRN Reason: Wide Open Stop: 07/04/18 17:44 Last Admin: 07/04/18 17:51 Dose: 1,000 mls Ceftriaxone Sodium/Dextrose (Rocephin 1 Gm (Premix)) 50 mls @ 100 mls/hr IV EDNOW ONE PRN Reason: Protocol Stop: 07/04/18 20:13 Last Admin: 07/04/18 20:06 Dose: 50 mls Ketorolac Tromethamine (Toradol) 30 mg IVP EDNOW ONE Stop: 07/04/18 18:49 Last Admin: 07/04/18 18:58 Dose: 30 mg Ondansetron HCl (Zofran) 4 mg IVP Q4 PRN PRN Reason: Nausea/Vomiting, Can't Take PO Stop: 12/31/18 17:42 Last Admin: 07/04/18 17:51 Dose: 4 mg Point of Care Test Results: Chemistry 07/04/18 17:47 POC Sodium 143 mEq/L mEq/L (135-145) POC Potassium 3.5 mEq/L mEq/L (3.3-5.0) POC Chloride 105 mEq/L mEq/L (97-110) POC Total CO2 23 mEq/L mEq/L (22-31) POC BUN 11 mg/dL mg/dL (7-23) POC Creatinine 0.6 mg/dL mg/dL (0.6-1.0) POC Glucose 85 mg/dL mg/dL (70-100) ISTAT H&H 07/04/18 17:47 POC Hgb 12.2 gm/dL L gm/dL (12.6-16.3) POC Hct 36 % L % (38-47) Departure - Departure Disposition: [facility] Inpatient Acute Clinical Impression: Nausea & vomiting Qualifiers: Vomiting type: unspecified Vomiting Intractability: non-intractable Qualified Code(s): R11.2 - Nausea with vomiting, unspecified Abdominal pain Qualifiers: Abdominal location: unspecified location Qualified Code(s): R10.9 - Unspecified abdominal pain Condition: Good
[2018-07-04] MEDS ORDERED: IOPAMIDOL (ISOVUE-300) 100 ML BTL ONE (17:53)
[2018-07-04 18:00] LABS: PLATELET COUNT 339 10^3/uL (150-400)
[2018-07-04] MEDS ORDERED: KETOROLAC 30 MG/1 ML SDV IVP ONE (18:48)
[2018-07-04] MEDS ORDERED: ACETAMINOPHEN 325 MG TAB PO PRN (20:40)
[2018-07-04] MEDS ORDERED: NS 1,000 ML IV SCH (20:45)
[2018-07-04] MEDS: ONDANSETRON 4 MG/2 ML VIAL IVP PRN (21:38)
[2018-07-04] MEDS: HYDROmorphONE/DILAUDID 1 MG/ML INJ IVP PRN (21:40)
--- NOTE | 2018-07-04 21:53 | PDGENHP ---
History and Physical - Chief Complaint Abdominal pain, n/v - History of Present Illness Socorro Fernandes is a 22 yo M with a PMHx of Crohn's disease s/p bowel resection in 01/2018, recently ruptured ovarian cyst who presents to [facility] for R sided abdominal pain, n/v, hematochezia and hematuria. Patient reports that she was recently diagnosed with ruptured ovarian cyst with last US performed 1 week ago. Since then she has had worsening R sided/RLQ abdominal pain described as sharp and stabbing with associated nausea with episodes of non- bilious, non-bloody emesis. She also reports recent increase in loose bloody BMs. She is currently on Remicade and follows with a GI doctor [facility]. She is supposed to have colonoscopy within next month and redosing of Remicade within next week or so. She also states she has been having hematuria with some dysuria. She was recently diagnosed with a UTI and completed a short course of bactrim. History Information - Allergies/Home Medication List Allergies/Adverse Reactions: sulfa Allergy (Intermediate, Uncoded 07/04/18 16:49) Vomiting Home Medications: ALPRAZolam [Xanax 0.5 MG (*)] 0.5 mg PO HS PRN 04/24/16 [Last Taken 04/03/16] Dextroamphetamine/Amphetamine [Dextroamp-Amphetamin 10 mg Tab] 10 mg PO DAILY@ 1200 PRN 04/24/16 [Last Taken Unknown] Lisdexamfetamine Dimesylate [Vyvanse] 50 mg PO DAILY PRN 04/24/16 [Last Taken Unknown] Multivitamins [Multivitamin (*)] 1 each PO DAILY 04/24/16 [Last Taken 04/23/16] Norethindrone-E.estradiol-Iron [Blisovi Fe 1.5-30 Tablet] 1 each PO DAILY [Last Taken 04/22/16] Sertraline HCl [Zoloft 100mg (*)] 50 mg PO HS 04/24/16 [Last Taken 04/22/16] Remicade Inj 100 mg (*) 07/04/18 [Last Taken Unknown] I have personally reviewed and updated: family history, medical history, social history, surgical history - Past Medical History Additional medical history: Crohn's, Ovarian Cysts - Surgical History Reports: colectomy - Family History Positive for: non-pertinent - Social History Smoking Status: Never smoked Review of Systems Review of Systems: ROS: 10pt was reviewed & negative except for what was stated in HPI & below Physical Exam Physical Exam: Temp Pulse Resp BP Pulse Ox 36.9 C 70 17 92/55 L 97 07/04/18 21:49 07/04/18 21:49 07/04/18 21:49 07/04/18 21:49 07/04/18 21:49 O2 (L/minute) 3 Constitutional: chronically ill appearing, uncomfortable Eyes: PERRL Ears, Nose, Mouth, Throat: dry mucous membranes Cardiovascular: regular rate and rhythym Respiratory: no respiratory distress Gastrointestinal: tenderness, No guarding, No rebound Skin: warm Musculoskeletal: generalized weakness Neurologic: AAOx3 Psychiatric: interacting appropriately Lab Data & Imaging Review 07/04/18 17:27 07/04/18 17:27 WBC 7.14 10^3/uL (3.80-9.50) 07/04/18 17:27 RBC 4.50 10^6/uL (4.18-5.33) 07/04/18 17:27 Hgb 12.5 g/dL (12.6-16.3) L 07/04/18 17:27 POC Hgb 12.2 gm/dL (12.6-16.3) L 07/04/18 17:47 Hct 36.6 % (38.0-47.0) L 07/04/18 17:27 POC Hct 36 % (38-47) L 07/04/18 17:47 MCV 81.3 fL (81.5-99.8) L 07/04/18 17:27 MCH 27.8 pg (27.9-34.1) L 07/04/18 17:27 MCHC 34.2 g/dL (32.4-36.7) 07/04/18 17:27 RDW 14.8 % (11.5-15.2) 07/04/18 17:27 Plt Count 339 10^3/uL (150-400) 07/04/18 17:27 MPV 9.9 fL (8.7-11.7) 07/04/18 17:27 Neut % (Auto) 53.7 % (39.3-74.2) 07/04/18 17:27 Lymph % (Auto) 37.1 % (15.0-45.0) 07/04/18 17:27 [place] % (Auto) 6.9 % (4.5-13.0) 07/04/18 17:27 Eos % (Auto) 1.4 % (0.6-7.6) 07/04/18 17: Baso % (Auto) 0.8 % (0.3-1.7) 07/04/18 17: Nucleat RBC Rel Count 0.0 % (0.0-0.2) 07/04/18 17: Absolute Neuts (auto) 3.83 10^3/uL (1.70-6.50) 07/04/18 17: Absolute Lymphs (auto) 2.65 10^3/uL (1.00-3.00) 07/04/18 17: Absolute Monos (auto) 0.49 10^3/uL (0.30-0.80) 07/04/18 17: Absolute Eos (auto) 0.10 10^3/uL (0.03-0.40) 07/04/18 17: Absolute Basos (auto) 0.06 10^3/uL (0.02-0.10) 07/04/18 17: Absolute Nucleated RBC 0.00 10^3/uL (0-0.01) 07/04/18 17: Immature Gran % 0.1 % (0.0-1.1) 07/04/18 17: Immature Gran # 0.01 10^3/uL (0.00-0.10) 07/04/18 17:27 POC Sodium 143 mEq/L (135-145) 07/04/18 17:47 Sodium 139 mEq/L (135-145) 07/04/18 17:27 POC Potassium 3.5 mEq/L (3.3-5.0) 07/04/18 17:47 Potassium 3.8 mEq/L (3.5-5.2) 07/04/18 17:27 POC Chloride 105 mEq/L (97-110) 07/04/18 17:47 Chloride 105 mEq/L (97-110) 07/04/18 17:27 Carbon Dioxide 22 mEq/l (22-31) 07/04/18 17:27 POC Total CO2 23 mEq/L (22-31) 07/04/18 17:47 Anion Gap 12 mEq/L (6-14) 07/04/18 17:27 POC BUN 11 mg/dL (7-23) 07/04/18 17:47 BUN 12 mg/dL (7-23) 07/04/18 17:27 Creatinine 0.7 mg/dL (0.6-1.0) 07/04/18 17:27 POC Creatinine 0.6 mg/dL (0.6-1.0) 07/04/18 17:47 Estimated GFR > 60 07/04/18 17:27 Glucose 85 mg/dL (70-100) 07/04/18 17:27 POC Glucose 85 mg/dL (70-100) 07/04/18 17:47 Calcium 9.3 mg/dL (8.5-10.4) 07/04/18 17:27 Total Bilirubin 0.4 mg/dL (0.1-1.4) 07/04/18 17:27 Conjugated Bilirubin 0.3 mg/dL (0.0-0.5) 07/04/18 17:27 Unconjugated Bilirubin 0.1 mg/dL (0.0-1.1) 07/04/18 17:27 AST 18 IU/L (14-46) 07/04/18 17:27 ALT 30 IU/L (9-52) 07/04/18 17:27 Alkaline Phosphatase 46 IU/L (38-126) 07/04/18 17:27 Total Protein 8.1 g/dL (6.3-8.2) 07/04/18 17:27 Albumin 4.8 g/dL (3.5-5.0) 07/04/18 17:27 Lipase 95 IU/L (23-300) 07/04/18 17:27 Beta HCG, Qual NEGATIVE 07/04/18 17:27 Urine Color YELLOW 07/04/18 16:55 Urine Appearance MODERATELY TURBID 07/04/18 16:55 Urine pH 5.0 (5.0-7.5) 07/04/18 16:55 Ur Specific [place] 1.030 (1.002-1.030) 07/04/18 16:55 Urine Protein 1+ (NEGATIVE) H 07/04/18 16:55 Urine Ketones NEGATIVE (NEGATIVE) 07/04/18 16:55 Urine Blood 3+ (NEGATIVE) H 07/04/18 16:55 Urine Nitrate NEGATIVE (NEGATIVE) 07/04/18 16:55 Urine Bilirubin NEGATIVE (NEGATIVE) 07/04/18 16:55 Urine Urobilinogen NEGATIVE EU (0.2-1.0) 07/04/18 16:55 Ur Leukocyte Esterase 1+ (NEGATIVE) H 07/04/18 16:55 Urine RBC 15-25 /hpf (0-3) H 07/04/18 16:55 Urine WBC 15-25 /hpf (0-3) H 07/04/18 16:55 Ur Epithelial Cells 2+ /lpf (NONE-1+) H 07/04/18 16:55 Calcium Oxalate Crystal PRESENT /hpf (NONE-1+) 07/04/18 16:55 Urine Bacteria 1+ /hpf (NONE SEEN) H 07/04/18 16:55 Urine Mucus 2+ /lpf (NONE-1+) H 07/04/18 16:55 Urine Glucose NEGATIVE (NEGATIVE) 07/04/18 16:55 Stool Occult Bld Scrn NEGATIVE (NEGATIVE) 07/04/18 17:40 Patient ABO/Rh A POSITIVE 07/04/18 17:27 Antibody Screen NEGATIVE 07/04/18 17:27 Assessment & Plan Assessment: Abdominal pain (Acute) - Hx of Crohn's disease s/p partial resection in 01/2018 - Also with recent ovarian cyst rupture - Complaining of hematochezia as well as hematuria, also n/v - Differential includes Crohn's flare, ruptured ovarian cyst, UTI, gastroenteritis - CT Abd on admission without acute etiology, no colitis noted - Pain medications PRN - Will order Pelvic U/S to evaluate for ruptured ovarian cyst - Consult GI in the AM for further evaluation, possible colonoscopy - Treatment of UTI as below UTI - Recently diagnosed with UTI, s/p course of bactrim - UA positive for blood, 1+ LE, 15-25 WBC, 1+ Bacteria on admission - S/p Ceftriaxone in ED, will continue for now - F/u Urine culture results Recent Ovarian Cyst Rupture - Free fluid noted on CT - Will order Pelvic U/S as above to further evaluate - Consult DIETARY DIRECTOR in the morning if needed Crohn's Disease s/p Bowel Resection - Currently on Remicade - [facility] - Likely Crohn's flare with bloody diarrhea - Patient would like to hold off on steroids for now until seen by GI (was previously on Budesonide, has problems with Prednisone in the past) - GI consult in the AM, patient and mother would like them to discuss with primary GI [facility] - CLD for now FEN: IVF, CLD DVT PPx: Low risk Code: FULL Dispo: Admit to Medicine
[2018-07-04] MEDS ORDERED: ALPRAZolam 0.5 MG TAB PO PRN (22:57)
[2018-07-04] MEDS ORDERED: Lisdexamfetamine Dimesylate [Vyvanse] 50 MG PO PRN (22:57)
[2018-07-05] MEDS: traMADol 50 MG TAB PO PRN ×2 (02:15→16:58)
[2018-07-05] MEDS: OXYCODONE/APAP 5/325 TAB PO PRN ×4 (04:06→20:05)
[2018-07-05 05:34] LABS: PLATELET COUNT 208 10^3/uL (150-400)
[2018-07-05] MEDS: MULTIVITAMINS 1 EACH TAB PO SCH (08:46)
[2018-07-05] MEDS: SERTRALINE HCL 100 MG TAB PO SCH (08:46)
--- NOTE | 2018-07-05 09:47 | HOSPPROG ---
Hospitalist Progress Note Assessment/Plan: 22yo F with Crohn's on remicade, recent ileal resection 01/2018 presents with subacute abdominal pain and blood per rectum. #Abdominal pain, BRBPR: Either crohn's flare vs obstipation - GI consulted - Will infuse remicade while here (she is just about due for this) - Start IV solumedrol 40mg q8h - Bowel regimen - Pain control - No colonoscopy for now unless doesn't clinically improve with above management #? UTI: Only symptom is hematuria. UA appears infected although currently menstruating. - Continue ceftriaxone while awaiting urine culture #Recent ovarian cyst: None noted on pelvic US. #Anxiety: Continue prn zoloft, xanax. VTE ppx: SCDs Diet: advance as tolerates Code: full Dispo: Switch to inpatient Subjective: No further episodes of blood in stool since admission. Still with persistent RLQ abdominal pain. Nuaseated, no vomiting but hasn't eaten much. Objective: Vital Signs Temp Pulse Resp BP Pulse Ox 36.8 C 70 16 91/54 L 97 07/05/18 08:41 07/05/18 08:41 07/05/18 08:41 07/05/18 08:41 07/05/18 08:41 Laboratory Results 07/05/18 04:52 - Physical Exam Constitutional: no apparent distress, appears nourished, not in pain Eyes: PERRL, anicteric sclera, EOMI Ears, Nose, Mouth, Throat: moist mucous membranes, hearing normal, ears appear normal, no oral mucosal ulcers Cardiovascular: regular rate and rhythym, no murmur, rub, or gallop Respiratory: no respiratory distress, no rales or rhonchi Gastrointestinal: normoactive bowel sounds, no palpable masses, tenderness (RLQ) , No rebound, No distension Genitourinary: no bladder fullness, no bladder tenderness, no renal bruits Skin: no rashes or abrasions, no fluctuance, no induration Musculoskeletal: full muscle strength, no muscle tenderness, normal joint ROM Neurologic: AAOx3, sensation intact bilaterally Psychiatric: interacting appropriately, not anxious, not encephalopathic, thought process linear ICD10 Worksheet Patient Problems: Problems Problem Status Onset Abdominal pain Acute Nausea & vomiting Acute Clostridium difficile infection Acute Crohn's colitis Acute SIRS (systemic inflammatory response syndrome) Acute
[2018-07-05] MEDS ORDERED: ZOLPIDEM TARTRATE 5 MG TAB PO PRN (10:15)
[2018-07-05] MEDS ORDERED: predniSONE 20 MG TAB PO PRN (10:25)
[2018-07-05] MEDS ORDERED: diphenhydrAMINE 50 MG CAP PO ONE (10:25)
[2018-07-05] MEDS ORDERED: diphenhydrAMINE 50 MG CAP PO PRN (10:25)
[2018-07-05] MEDS ORDERED: methylPREDNISolone SOD SUCC 125 MG/2 ML VIAL IVP PRN (10:25)
[2018-07-05] MEDS ORDERED: ACETAMINOPHEN 325 MG TAB PO ONE (10:25)
[2018-07-05] MEDS ORDERED: ACETAMINOPHEN 325 MG TAB PO PRN (10:25)
[2018-07-05] MEDS ORDERED: EPINEPHrine 1 MG/ML INJ SC PRN (10:25)
[2018-07-05] MEDS ORDERED: NS 1,000 ML IV SCH (10:30)
[2018-07-05] MEDS: HYDROmorphONE/DILAUDID 1 MG/ML INJ IVP PRN ×3 (10:34→22:09)
[2018-07-05] MEDS ORDERED: methylPREDNISolone SOD SUCC 40 MG/ML VIAL IVP ONE (11:30)
--- NOTE | 2018-07-05 11:59 | PDMN ---
Medical Necessity Medical necessity: Change to inpt as of 07/05/18 @ 10:10, meets inpt criteria per MD order and [facility] [place] [id number], Inflammatory Bowel Disease, A-2 days, initially admitted as OBS presenting w/abd pain, N/V, hematochezia, and hematuria, upgraded to inpt for persistent abd pain and nausea c/w Crohn's flare, plan for IV Remicade while inpt, IV steroids, IV Dilaudid and PO pain control, IVF, IV ABX's, GI consult. 22 y/o w/hx Crohn's s/p bowel resection in 01/2018, recently ruptured ovarian cyst, recent UTI. Est lost>2MN for ongoing eval/ management of above.
[2018-07-05] MEDS ORDERED: INFLIXIMAB-DYYB 300 MG in NS 250 ML IV ONE (12:00)
[2018-07-05] MEDS ORDERED: ADDERALL 10 MG TAB PO PRN (12:00)
--- NOTE | 2018-07-05 12:39 | GCON ---
[f rep st] CONSULTATION DATE OF CONSULTATION: 07/05/2018 REFERRING PHYSICIAN: Doroteo Argueta MD REASON FOR CONSULTATION: Abdominal pain, known Crohn disease. REQUESTING PROVIDER: HISTORY OF PRESENT ILLNESS: Dr. Argueta, thank you very kindly for asking me to evaluate this patie nt for abdominal pain and bloody diarrhea in the setting of known terminal ileal Crohn disease that h as had surgical intervention for ileal stenosis. The patient is well known to me from previous evalu ations, and has known ileal and colonic Crohn disease. She was on Humira, but failed due to stenosis and recurrent abdominal symptoms, and underwent surgery for her Crohn in January of last year. She has been on Remicade since then. She had been living in [place] and more recently [place], and [place]. Earlier this year, she started to develop abdominal pain that was predominantly right sided with general malaise. The pain was constant, sharp, and intermittent, and she was found to have an ovarian cyst with rupture that was thought to possibly be the cause. She did not have a l ot of bloody diarrhea at that time. She was hospitalized in [place] for a few days and discharged. S he re-presented in [place] with worsening abdominal pain and symptoms, and was again hospitalized [facility] for [facility] bit, but it does not sound like received any treatment for Crohn disease. She saw a gyneco logist in followup, who felt the ovarian cyst had been indeed ruptured, but not really the cause of h er current symptoms or pain and not felt to be of any need for intervention. The patient has been worsening with her symptoms and flew home to be with her mom for support. She c ontinues to have significant abdominal pain, which is predominantly right lower quadrant, sharp and s tabbing, but also constant and cramping. Her bowel movements are about 4 per day and have been roe ed in character. They are more loose and watery, and associated with blood. She has been having sub jective fever. She has been nauseated with periodic episodes of vomiting. She was admitted last yadira, and had a CT scan of the abdomen and pelvis on July 04, which revealed stool in the proximal co lenka with no acute findings. There was no evidence of obstruction. There was fecalization of the ter tyson ileum noted. There was no intraabdominal fluid or intraperitoneal air. There was no mesenteri c stranding or bowel thickening. No evidence of obstruction. I am asked to assist with further eval uation and management. PAST MEDICAL HISTORY: Significant for anxiety disorder. Terminal ileal Crohn disease on Remicade. Her last Remicade was in April. She was induced with Remicade after surgery in January. Rupture d ovarian cyst on the right ovary that was treated conservatively. PAST SURGICAL HISTORY: Ileal colonic resection. SOCIAL HISTORY: No tobacco, no alcohol, and no substance abuse. She is a business controller and consu ltant. FAMILY HISTORY: Negative for inflammatory bowel disease. REVIEW OF SYSTEMS: GENERAL: She has reported malaise and subjective fever. No weight loss. Her ap petite has been bad. She has been nauseous. HEENT: Denies headache, visual disturbances, sore thro at, rhinorrhea, or ear pain. PULMONARY: No cough or shortness of breath. CARDIOVASCULAR: No chest pain, syncope, or palpitations. GI: Negative other than HPI. RHEUMATOLOGIC: No joint pain or swel ling. DERMATOLOGIC: No rash or jaundice. PSYCHIATRIC: Anxiety that is well controlled. She also has attention deficit disorder, which she says has been stabilized with Adderall. No other mood dist urbances or insomnia. She has been traveling a lot for work and feels somewhat rundown. HEMATOLOGIC : No bruising or epistaxis. GYNECOLOGIC: She has had a recent ruptured ovarian cyst, but no other gynecologic complaints such as vaginal bleeding or discharge. GENITOURINARY: Denies hematuria, dysu matthias, or flank pain. PHYSICAL EXAM: VITAL SIGNS: Blood pressure is 91/54 with a heart rate of 70. She has respirations of 16. Oxygenation is 97% on 1 L nasal cannula. T-max is 37.1 with a temperature currently of 36.8. GENERAL: An anxious-appearing female, but no acute distress. Alert and able to provide her own hi story. HEENT: Oropharynx clear. NECK: Supple. No thrush. No lymphadenopathy. No jugular venous distention. PULMONARY: Clear to auscultation bilaterally. CARDIOVASCULAR: Regular rate and rhyth m without murmur, rub, or gallop. GI: Diffusely tender abdomen, worse in the right lower quadrant wi th some voluntary guarding. No rebound. No palpable mass or lesion. Bowel sounds are normal. No d istention to the abdomen. No central tympany. No abdominal bruit. MUSCULOSKELETAL: There is no milagros int deformity, swelling, or warmth. DERMATOLOGIC: No rash or jaundice. NEUROLOGICAL: Alert to per son, place, and time. Speech and affect are normal, although she does seem a bit anxious. Motor is nonfocal. DATABASE: White blood count is 4.3, hematocrit 28.2 with an MCV of 85.7, and platelets are 208. Sod ium 143, potassium 3.5, chloride 105, bicarbonate 23, BUN 12, and creatinine 0.7. LFTs are normal. Beta hCG is negative. Lipase is normal. CT scan of the abdomen and pelvis as per the HPI, which bateman s not show any acute process other than colonic stool in the right with fecalization of the terminal ileum and no features of obstruction or really any active Crohn disease, and no other explanation for pain. IMPRESSION: 1. Known Crohn disease, ileal and colonic, on Remicade. 2. Abdominal pain, generalized, but predominantly right lower quadrant. 3. Nausea. 4. Malaise. 5. Subjective fever. 6. Recent ruptured ovarian cyst. 7. Radiographic evidence of obstipation. RECOMMENDATIONS: 1. MiraLAX 17 g once daily. 2. Initiate Remicade and will infuse that today. She is close to being due for her next infusion. I am unclear as to whether her current symptoms are just due to obstipation and the fecalization of t he ileum or active Crohn, but nonetheless we will treat this as a Crohn flare. 3. Initiate Solu-Medrol 40 mg three times daily intravenous. 4. Clear liquid diet and advance as tolerated. 5. We will consider colonoscopy to assess her Crohn disease and pain if she fails to really improve with the therapy. /[id number]/MODL
--- NOTE | 2018-07-05 13:57 | ASMTCMCOM ---
CM Note CM Note Notes: CM met with patient during rounds. Patient is a 22 year old who came in with a history of Chrohn's disease, UTI and ruptured ovarian cyst. Patient is being followed by GI doc. When medically stable she will be discharged independently. CM available to follow. Plan: Independent Date Signed: 07/05/2018 01:56 PM Electronically Signed By:Sharonda Haynes
[2018-07-05] MEDS: methylPREDNISolone SOD SUCC 40 MG/ML VIAL IVP SCH (17:46)
[2018-07-05] MEDS: ONDANSETRON DISINTEGRATING 4 MG TAB PO PRN (20:57)
[2018-07-05] MEDS: NORETHINDRONE E ESTRADIOL IRON PO SCH (21:03)
[2018-07-06] MEDS: methylPREDNISolone SOD SUCC 40 MG/ML VIAL IVP SCH ×3 (02:22→17:54)
[2018-07-06] MEDS: OXYCODONE/APAP 5/325 TAB PO PRN ×4 (02:22→22:13)
[2018-07-06] MEDS: MULTIVITAMINS 1 EACH TAB PO SCH (08:25)
[2018-07-06] MEDS: SERTRALINE HCL 100 MG TAB PO SCH (08:25)
[2018-07-06] MEDS: POLYETHYLENE GLYCOL 3350 17 GM PKT PO SCH ×2 (08:25→19:39)
--- NOTE | 2018-07-06 13:17 | HOSPPROG ---
Hospitalist Progress Note Assessment/Plan: 22yo F with Crohn's on remicade, recent ileal resection 01/2018 presents with subacute abdominal pain and one episode of blood per rectum. Symptoms not drastically changed after 1 day of IV steroids. #RLQ abdominal pain: Either crohn's flare vs obstipation vs functional - GI consulted - s/p remicade infusion yesterday - Continue IV solumedrol 40mg q8h - Bowel regimen - adding mag citrate today - Pain control - she is trying to avoid IV opioids - If symptoms not better tomorrow, GI considering EGD/colonoscopy to help elucidate cause of symptoms #? UTI: Only symptom is hematuria. UA appears infected although currently menstruating. - Continue ceftriaxone while awaiting urine culture #Recent ovarian cyst: None noted on pelvic US. #Anxiety: Continue prn zoloft, xanax. #Anemia: Somewhat lower than prior. No further rectal bleeding while here. VTE ppx: SCDs Diet: advance as tolerates Code: full Dispo: Switch to inpatient Subjective: Still with significant RLQ pain. Vomited last night. Passing gas but no BM yet. Blood in urine has resolved. Objective: Vital Signs Temp Pulse Resp BP Pulse Ox 36.9 C 82 16 87/48 L 97 07/06/18 08:00 07/06/18 08:00 07/06/18 08:00 07/06/18 08:00 07/06/18 08:00 Laboratory Results 07/06/18 04:52 07/06/18 04:52 07/05/18 07/06/18 07/07/18 05:59 05:59 05:59 Intake Total 1821 Balance 1821 - Physical Exam Constitutional: no apparent distress, appears nourished, not in pain Eyes: PERRL, anicteric sclera, EOMI Ears, Nose, Mouth, Throat: moist mucous membranes, hearing normal, ears appear normal, no oral mucosal ulcers Cardiovascular: regular rate and rhythym, no murmur, rub, or gallop Respiratory: no respiratory distress, no rales or rhonchi, clear to auscultation Gastrointestinal: tenderness (RLQ), guarding, other (decreased bowel sounds), No distension Genitourinary: no bladder fullness, no bladder tenderness, no renal bruits Skin: no rashes or abrasions, no fluctuance, no induration Musculoskeletal: full muscle strength, no muscle tenderness, normal joint ROM Neurologic: AAOx3 Psychiatric: interacting appropriately ICD10 Worksheet Patient Problems: Problems Problem Status Onset Abdominal pain Acute Nausea & vomiting Acute Clostridium difficile infection Acute Crohn's colitis Acute SIRS (systemic inflammatory response syndrome) Acute
--- NOTE | 2018-07-06 14:55 | SOAPPROG ---
KAMRYN Progress Note Assessment/Plan: Assessment: 1. RLQ pain 2. Hugh-terminal ileal crohns 3. Obstipation on CT (fecalization of ileum) Plan: 1. Continue IV solumedrol for now 2. Remicaid given yesterday 3. ADAT 4. Mg citrate today and continue miralax 07/06/18 14:49 Subjective: CC: still with right sided abdominal pain and nausea No BM today Objective: Vital Signs Temp Pulse Resp BP Pulse Ox 36.9 C 86 16 99/50 L 95 07/06/18 12:00 07/06/18 12:00 07/06/18 12:00 07/06/18 12:00 07/06/18 12:00 Laboratory Results 07/06/18 04:52 07/06/18 04:52 07/05/18 07/06/18 07/07/18 05:59 05:59 05:59 Intake Total 1821 Balance 1821 Physical Exam - Physical Exam General Appearance: anxiety EENT: pharynx normal Neck: supple Respiratory: lungs clear Cardiac/Chest: regular rate, rhythm Abdomen: soft, other (TTP Right upper and lower. Voluntary guarding) ICD10 Worksheet Patient Problems: Problems Problem Status Onset Abdominal pain Acute Nausea & vomiting Acute Clostridium difficile infection Acute Crohn's colitis Acute SIRS (systemic inflammatory response syndrome) Acute
[2018-07-06] MEDS ORDERED: MAGNESIUM CITRATE 300 ML BOTTLE PO ONE (14:56)
[2018-07-06] MEDS: ONDANSETRON DISINTEGRATING 4 MG TAB PO PRN (19:39)
[2018-07-06] MEDS: traMADol 50 MG TAB PO PRN (19:39)
[2018-07-06] MEDS: NORETHINDRONE E ESTRADIOL IRON PO SCH (19:41)
[2018-07-07] MEDS: methylPREDNISolone SOD SUCC 40 MG/ML VIAL IVP SCH ×2 (03:00→11:29)
[2018-07-07] MEDS: OXYCODONE/APAP 5/325 TAB PO PRN ×5 (04:38→20:35)
[2018-07-07] MEDS: MULTIVITAMINS 1 EACH TAB PO SCH (08:37)
[2018-07-07] MEDS: SERTRALINE HCL 100 MG TAB PO SCH (08:38)
[2018-07-07] MEDS ORDERED: POLYETHYLENE GLYCOL 3350 17 GM PKT PO PRN (11:21)
--- NOTE | 2018-07-07 11:34 | HOSPPROG ---
Hospitalist Progress Note Assessment/Plan: 22yo F with Crohn's on remicade, recent ileal resection 01/2018 presents with RLQ abdominal pain and obstipation #RLQ abdominal pain: Either crohn's flare vs obstipation vs functional - GI consulted - s/p remicade infusion yesterday - Continue IV solumedrol 40mg q8h and transition to oral prednisone in am - Bowel regimen - no BM, increased miralax to TID and bowel prep if that is not effective - Pain control - she is trying to avoid IV opioids -if continues to have no improvement considering colonoscopy # new-terminal ileal Crohn's: as above, followed by GI, hx of ileal colonic resection for ileal stenosis #bacturia: asymptomatic with multiple different bacteria and low colony counts on urine culture, dc abx #Recent ovarian cyst: None noted on pelvic US. #Anxiety: Continue prn zoloft, xanax. #Anemia: Somewhat lower than prior. No further rectal bleeding while here. # IP status # Patient new to myc are. Old records reviewed and summarized as above. Subjective: no significant overnight events, patient feeling a bit better, still unable to eat much and no BM Objective: Vital Signs Temp Pulse Resp BP Pulse Ox 36.9 C 72 16 94/62 L 95 07/07/18 08:00 07/07/18 08:00 07/07/18 08:00 07/07/18 08:00 07/07/18 08:00 Laboratory Results 07/06/18 04:52 07/06/18 04:52 07/06/18 07/07/18 07/08/18 05:59 05:59 05:59 Intake Total 1821 1150 Balance 1821 1150 awake alert anicteric op clear rrr no mrg cta b soft bs decreased no cce warm dry well perfused oriented ICD10 Worksheet Patient Problems: Problems Problem Status Onset Abdominal pain Acute Nausea & vomiting Acute Clostridium difficile infection Acute Crohn's colitis Acute SIRS (systemic inflammatory response syndrome) Acute
--- NOTE | 2018-07-07 15:32 | SOAPPROG ---
KAMRYN Progress Note Assessment/Plan: Assessment: 1. RLQ pain 2. Hugh-terminal ileal crohns 3. Obstipation on CT (fecalization of ileum) Plan: 1. Continue IV solumedrol for now 2. Mg citrate given with only small BM 3. Increase Miralax to TID dosing. Will initiate bowel prep if not effective to resolve obstipation 4. AM [address] 5. Heating pad to abdomen 6. Start oral prednisone 40mg tomorrow and stop IV solumedrol 7. Consider colonoscopy to assess anastamosis and crohn's activity if no improvement 8. Diet as tolerated. 9. Encouraged ambulation 10. Check AM CBC and CMP 07/07/18 15:32 Subjective: CC: Small BM with Mgcitrate Still with RLQ and RUQ pain Objective: Vital Signs Temp Pulse Resp BP Pulse Ox 36.9 C 84 17 102/62 96 07/07/18 12:00 07/07/18 12:00 07/07/18 12:00 07/07/18 12:00 07/07/18 12:00 Laboratory Results 07/06/18 04:52 07/06/18 04:52 07/06/18 07/07/18 07/08/18 05:59 05:59 05:59 Intake Total 1821 1150 Balance 1821 1150 Physical Exam - Physical Exam General Appearance: mild distress, thin Neck: supple Respiratory: lungs clear Cardiac/Chest: regular rate, rhythm Abdomen: guarding, other (TTP entire right abdomen), No distended, No rebound ICD10 Worksheet Patient Problems: Problems Problem Status Onset Abdominal pain Acute Nausea & vomiting Acute Clostridium difficile infection Acute Crohn's colitis Acute SIRS (systemic inflammatory response syndrome) Acute
[2018-07-07] MEDS: POLYETHYLENE GLYCOL 3350 17 GM PKT PO SCH ×2 (16:41→20:35)
[2018-07-07] MEDS: NORETHINDRONE E ESTRADIOL IRON PO SCH (20:22)
[2018-07-08] MEDS: OXYCODONE/APAP 5/325 TAB PO PRN ×2 (04:40→09:03)
[2018-07-08 05:07] LABS: PLATELET COUNT 341 10^3/uL (150-400)
[2018-07-08] MEDS: ONDANSETRON 4 MG/2 ML VIAL IVP PRN ×2 (09:01→19:46)
[2018-07-08] MEDS: SERTRALINE HCL 100 MG TAB PO SCH (09:08)
[2018-07-08] MEDS: MULTIVITAMINS 1 EACH TAB PO SCH (09:09)
[2018-07-08] MEDS: predniSONE 20 MG TAB PO SCH (09:09)
[2018-07-08] MEDS: POLYETHYLENE GLYCOL 3350 17 GM PKT PO SCH ×3 (09:12→23:11)
--- NOTE | 2018-07-08 11:58 | SOAPPROG ---
SOAP Progress Note Assessment/Plan: Assessment/Plan: Right-sided abdominal pain. Better today. Overall, suspect mostly functional, or some post-op scar pain. Some active Crohn's, not appreciated on CT, lab work , is possible, but less likely. Regardless, doing somewhat better. - CPM - no colonoscopy needed at this juncture - strait-cath U/A, to make sure no component of UTI (adm'x clean-catch urine with wbc, but dirty) 07/08/18 11:53 Subjective: cc: abdominal pain RUQ abdominal pain better ("08/04" vs. 09/04 yesterday). Some good results with miralax. Denies fever, rigors, sweats, chills. Tolerating p.o. Objective: Vital Signs Temp Pulse Resp BP Pulse Ox 37.1 C 85 16 95/61 L 94 07/08/18 11:23 07/08/18 11:23 07/08/18 11:23 07/08/18 11:23 07/08/18 11:23 Laboratory Results 07/08/18 04:45 07/08/18 04:45 07/07/18 07/08/18 07/09/18 05:59 05:59 05:59 Intake Total 1150 1940 Balance 1150 1940 Adm'x U/A with wbc, but + epis, with cx growing s. epidermis. KUB with mild stool present only. Physical Exam - Physical Exam General Appearance: WD/WN, alert, no apparent distress EENT: PERRL/EOMI, normal ENT inspection, pharynx normal, TMs normal Neck: non-tender, full range of motion, supple, normal inspection Respiratory: chest non-tender, lungs clear, normal breath sounds Cardiac/Chest: normal peripheral pulses, regular rate, rhythm Peripheral Pulses: 2+: carotid (R), carotid (L), femoral (R), femoral (L), dorsalis-pedis (R), dorsalis-pedis (L) Abdomen: normal bowel sounds, non-tender, soft Pelvic Exam: deferred Rectal: deferred Back: Normal inspection Skin: normal color, warm/dry Lymphatic: no adenopathy Extremities: normal range of motion, non-tender, normal inspection, normal capillary refill Neuro/Psych: no motor/sensory deficits, alert, normal mood/affect, oriented x 3 ICD10 Worksheet Patient Problems: Problems Problem Status Onset Abdominal pain Acute Nausea & vomiting Acute Clostridium difficile infection Acute Crohn's colitis Acute SIRS (systemic inflammatory response syndrome) Acute
[2018-07-08] MEDS: oxyCODONE IR 5 MG TAB PO PRN ×4 (13:03→21:52)
--- NOTE | 2018-07-08 14:31 | ASMTCMCOM ---
CM Note CM Note Notes: Met with Pt to discuss discharge planning. Pt is feeling better but is still requiring percocett/Tramadol for pain. Pt plans on going to her mother here in [place] and fly back to [place] on the . Pt would like CM to fax discharge information to her Doctors in [place]. Pt will get CM the fax numbers and Doctors names. PLAN: Pt will discharge to her mothers her in [place] independently. Date Signed: 07/08/2018 02:30 PM Electronically Signed By:Jenn John
--- NOTE | 2018-07-08 15:02 | HOSPPROG ---
Hospitalist Progress Note Assessment/Plan: 22yo F with Crohn's on remicade, recent ileal resection 01/2018 presents with RLQ abdominal pain and obstipation #RLQ abdominal pain: Either crohn's flare vs obstipation vs functional - GI consulted, appreciate their input - s/p remicade infusion and IV solumedrol, now on prednisone - Bowel regimen -having BM now with miralax - Pain control - she is trying to avoid IV opioids -overall improved but pain still present and relatively severe, now more in RUQ # new-terminal ileal Crohn's: as above, followed by GI, hx of ileal colonic resection for ileal stenosis, avoiding repeat colonoscopy but will likely need that as an OP in near future #bacturia: asymptomatic with multiple different bacteria and low colony counts on urine culture, dc abx #Recent ovarian cyst: None noted on pelvic US currently. #Anxiety: Continue prn zoloft, xanax. #Anemia: Somewhat lower than prior. No further rectal bleeding while here. # IP status # Care plan reviewed with GI, further hx obtained from patients mother present at bedside. Subjective: no significant overnight events, has had BM, pain improved but still present, eating some but not much Objective: Vital Signs Temp Pulse Resp BP Pulse Ox 37.1 C 85 16 95/61 L 94 07/08/18 11:23 07/08/18 11:23 07/08/18 11:23 07/08/18 11:23 07/08/18 11:23 Laboratory Results 07/08/18 04:45 07/08/18 04:45 07/07/18 07/08/18 07/09/18 05:59 05:59 05:59 Intake Total 1150 1940 Balance 1150 1940 awake alert anicteric op clear rrr no mrg cta b soft bs decreased no cce warm dry well perfused oriented - Time Spent With Patient Time Spent with Patient: greater than 35 minutes Time Spent with Patient: Greater than 35 minutes spent on this patients care, greater than 50% of time spent counseling, educating, and coordinating care regarding the above mentioned plan. ICD10 Worksheet Patient Problems: Problems Problem Status Onset Abdominal pain Acute Nausea & vomiting Acute Clostridium difficile infection Acute Crohn's colitis Acute SIRS (systemic inflammatory response syndrome) Acute
[2018-07-08] MEDS: traMADol 50 MG TAB PO PRN (18:47)
[2018-07-08] MEDS: HYDROmorphONE/DILAUDID 1 MG/ML INJ IVP PRN (19:27)
[2018-07-08] MEDS: NORETHINDRONE E ESTRADIOL IRON PO SCH (21:51)
[2018-07-09] MEDS ORDERED: NS 1,000 ML IV ONE (03:04)
[2018-07-09] MEDS: traMADol 50 MG TAB PO PRN (03:12)
[2018-07-09 04:20] LABS: PLATELET COUNT 304 10^3/uL (150-400)
[2018-07-09] MEDS ORDERED: NS 1,000 ML IV SCH (04:45)
[2018-07-09] MEDS ORDERED: ALPRAZolam 0.25 MG TAB PO PRN (05:00)
[2018-07-09] MEDS: oxyCODONE IR 5 MG TAB PO PRN ×5 (05:29→23:53)
[2018-07-09] MEDS: SERTRALINE HCL 100 MG TAB PO SCH (10:34)
[2018-07-09] MEDS: POLYETHYLENE GLYCOL 3350 17 GM PKT PO SCH ×2 (10:36→21:22)
[2018-07-09] MEDS: predniSONE 20 MG TAB PO SCH (10:36)
[2018-07-09] MEDS: MULTIVITAMINS 1 EACH TAB PO SCH (10:36)
[2018-07-09] MEDS ORDERED: HYDROmorphONE/DILAUDID 2 MG/ML INJ IVP ONE (11:08)
--- NOTE | 2018-07-09 13:47 | HOSPPROG ---
Hospitalist Progress Note Assessment/Plan: 22yo F with Crohn's on remicade, recent ileal resection 01/2018 presents with RLQ abdominal pain and obstipation #right sided abdominal pain: unclear etiology and really not improving so far. Initially thought to be potentially due to Crohn's flare versus obstipation but treatment of both has not changed her sxs so far. Pain initially RLQ now more RUQ and severe. Further w/u including LFTs, lipase unremarkable. Did have low random am cortisol which may be due to narcotics but ? AI as etiology of her abdominal pain and will f/u with alondra stim in am. Abd US pending, has had several abdominal CT in the last several months and would like to avoid another if possible. Appreciate GI input. # new-terminal ileal Crohn's: as above, followed by GI, hx of ileal colonic resection for ileal stenosis, have been attempting to avoid repeat colonoscopy as patient has her care [place] and would like to have her care there if possible.GI involved. #bacturia: asymptomatic with multiple different bacteria and low colony counts on urine culture, repeat UA clean catch wnl, off abx. #Recent ovarian cyst: None noted on pelvic US currently. #Anxiety: Continue prn zoloft, xanax. #Anemia: Somewhat lower than prior. No further rectal bleeding while here. # IP status # Further hx obtained from patients mother present at bedside. Subjective: patient notes she had a bad night with significantly increased pain , she notes pain is largely in her RUQ now though it started right lower Objective: Vital Signs Temp Pulse Resp BP Pulse Ox 36.9 C 80 17 103/69 94 07/09/18 12:00 07/09/18 12:00 07/09/18 12:00 07/09/18 12:00 07/09/18 12:00 Laboratory Results 07/09/18 11:58 07/09/18 04:00 07/08/18 07/09/18 07/10/18 05:59 05:59 05:59 Intake Total 0 500 Balance 1940 500 awake alert anicteric op clear rrr no mrg cta b soft bs decreased no cce warm dry well perfused oriented - Time Spent With Patient Time Spent with Patient: greater than 35 minutes Time Spent with Patient: Greater than 35 minutes spent on this patients care, greater than 50% of time spent counseling, educating, and coordinating care regarding the above mentioned plan. ICD10 Worksheet Patient Problems: Problems Problem Status Onset Abdominal pain Acute Nausea & vomiting Acute Clostridium difficile infection Acute Crohn's colitis Acute SIRS (systemic inflammatory response syndrome) Acute
--- NOTE | 2018-07-09 15:02 | SOAPPROG ---
SOAP Progress Note Assessment/Plan: Assessment/Plan: Right-sided abdominal pain. Worse last night. Better again today, but tender. Some vomiting last night. Overall, suspect mostly functional (with possibly a psychosomatic contribution) . Some active Crohn's, not appreciated on CT, lab work, and not responsive to her steroids, is still possible, but less likely. Low cortisol level, but she has been on steroids for some days now, which I suspect might affect the measurement. - at this point, recommend colonoscopy, as a more definitive way to see if active Crohn's vs. functional. [place] If she changes her mind, we can do it here, with a rose prep, using propofol. If she was agreeable, I would also do an EGD at the same time. - decrease miralax - RUQ US pending - else, as per hospitalist service 07/09/18 15:04 Subjective: cc: abdominal pain "Bad night," with increasing right-sided and epigastric abdominal pain, vomiting , low-grade fever. Somewhat better now. No sweats, nausea. No rigors. Two bms. Objective: Vital Signs Temp Pulse Resp BP Pulse Ox 36.9 C 80 17 103/69 94 07/09/18 12:00 07/09/18 12:00 07/09/18 12:00 07/09/18 12:00 07/09/18 12:00 Laboratory Results 07/09/18 11:58 07/09/18 04:00 07/08/18 07/09/18 07/10/18 05:59 05:59 05:59 Intake Total 1939 500 Balance 1940 500 U/A negative. Low AM cortisol. TSH 6.77. Physical Exam - Physical Exam General Appearance: WD/WN, alert, no apparent distress EENT: PERRL/EOMI, normal ENT inspection, pharynx normal, TMs normal Neck: non-tender, full range of motion, supple, normal inspection Respiratory: chest non-tender, lungs clear, normal breath sounds Cardiac/Chest: normal peripheral pulses, regular rate, rhythm Peripheral Pulses: 2+: carotid (R), carotid (L), femoral (R), femoral (L), dorsalis-pedis (R), dorsalis-pedis (L) Abdomen: normal bowel sounds, soft, No non-tender (tender to light touch in the RLQ and epigastric area.) Pelvic Exam: deferred Rectal: deferred Back: Normal inspection Skin: normal color, warm/dry Lymphatic: no adenopathy Extremities: normal range of motion, non-tender, normal inspection, normal capillary refill Neuro/Psych: no motor/sensory deficits, alert, normal mood/affect, oriented x 3 ICD10 Worksheet Patient Problems: Problems Problem Status Onset Abdominal pain Acute Nausea & vomiting Acute Clostridium difficile infection Acute Crohn's colitis Acute SIRS (systemic inflammatory response syndrome) Acute
[2018-07-09] MEDS: LEVONORGESTREL ETHIN ESTRADIOL PO SCH (22:23)
[2018-07-09] MEDS: NORETHINDRONE E ESTRADIOL IRON PO SCH (22:28)
[2018-07-10] MEDS: oxyCODONE IR 5 MG TAB PO PRN ×5 (04:26→22:09)
[2018-07-10] MEDS: ONDANSETRON DISINTEGRATING 4 MG TAB PO PRN (04:29)
[2018-07-10] MEDS: HYDROmorphONE/DILAUDID 1 MG/ML INJ IVP PRN ×3 (05:10→19:58)
[2018-07-10] MEDS ORDERED: COSYNTROPIN 0.25 MG/2 ML SYRINGE IVP ONE (06:00)
[2018-07-10] MEDS: POLYETHYLENE GLYCOL 3350 17 GM PKT PO SCH (09:21)
[2018-07-10] MEDS: MULTIVITAMINS 1 EACH TAB PO SCH (09:21)
[2018-07-10] MEDS: predniSONE 20 MG TAB PO SCH (09:21)
[2018-07-10] MEDS: SERTRALINE HCL 100 MG TAB PO SCH (09:22)
--- NOTE | 2018-07-10 11:54 | SOAPPROG ---
KAMRYN Progress Note Assessment/Plan: Assessment/Plan: 1. Right-sided abdominal pain. Better today, but still "5/10". Overall, suspect mostly functional (with possibly a psychosomatic contribution) . Some active Crohn's, not appreciated on CT, lab work, and not responsive to her steroids and present dose of remicade, is still possible, but less likely. 2. Blood work with low cortisol level. Expected result, due to her steroids only, and do not suspect significant. - again, recommend colonoscopy, as a more definitive way to see if active Crohn' s vs. functional. I'll discuss with [place] doc in [place] If she wishes to proceed, will use propofol. If she was agreeable, I would also do an EGD at the same time. - decrease miralax to daily - dicyclomine prn - else, as per hospitalist service 07/10/18 11:50 Subjective: cc: abdominal pain Pain better, but still "5/10." No rigors, chills, sweats, vomiting. Objective: Vital Signs Temp Pulse Resp BP Pulse Ox 36.9 C 94 16 109/67 94 07/10/18 11:42 07/10/18 11:42 07/10/18 11:42 07/10/18 11:42 07/10/18 11:42 Laboratory Results 07/09/18 11:58 07/09/18 04:00 07/09/18 07/10/18 07/11/18 05:59 05:59 05:59 Intake Total 500 2330 Output Total 1100 Balance 500 1230 Abd US negative. Nl free T3, T4 cortisol 0.6 Physical Exam - Physical Exam General Appearance: WD/WN, alert, no apparent distress EENT: PERRL/EOMI, normal ENT inspection, pharynx normal, TMs normal Neck: non-tender, full range of motion, supple, normal inspection Respiratory: chest non-tender, lungs clear, normal breath sounds Cardiac/Chest: normal peripheral pulses, regular rate, rhythm Peripheral Pulses: 2+: carotid (R), carotid (L), femoral (R), femoral (L), dorsalis-pedis (R), dorsalis-pedis (L) Abdomen: normal bowel sounds, soft, No non-tender (RUQ tenderness to light palpation) Pelvic Exam: deferred Rectal: deferred Back: Normal inspection Skin: normal color, warm/dry Lymphatic: no adenopathy Extremities: normal range of motion, non-tender, normal inspection, normal capillary refill Neuro/Psych: no motor/sensory deficits, alert, normal mood/affect, oriented x 3 ICD10 Worksheet Patient Problems: Problems Problem Status Onset Abdominal pain Acute Nausea & vomiting Acute Clostridium difficile infection Acute Crohn's colitis Acute SIRS (systemic inflammatory response syndrome) Acute
--- NOTE | 2018-07-10 17:33 | HOSPPROG ---
Hospitalist Progress Note Assessment/Plan: 22yo F with Crohn's on remicade, recent ileal resection 01/2018 presents with RLQ abdominal pain and obstipation #right sided abdominal pain: etiology unclear. Gi consulted who thinks etiology may be related to functional superimposed with possible mild flare of underlying crohns and some psychosomatic component. # new-terminal ileal Crohn's: as above, followed by GI, hx of ileal colonic resection for ileal stenosis, have been attempting to avoid repeat colonoscopy as [place] like [place] have [place] care there if possible.GI involved. -GI recommends colonoscopy and endoscopy, patient so far refusing. - I offered discharge with very short course of pain meds to get [place] back [place] to [place] seen by her home GI doc, but patient unsure of this as well. #bacturia: asymptomatic with multiple different bacteria and low colony counts on urine culture, repeat UA clean catch wnl, off abx. #Recent ovarian cyst: None noted on pelvic US currently. #Anxiety: Continue prn zoloft, xanax. #Anemia: Somewhat lower than prior. No further rectal bleeding while here. # IP status # Further hx obtained from patients mother present at bedside. Subjective: pain somewhat better today. no NV. Objective: Vital Signs Temp Pulse Resp BP Pulse Ox 37.2 C 81 16 91/56 L 94 07/10/18 17:00 07/10/18 17:00 07/10/18 17:00 07/10/18 17:00 07/10/18 17:00 Laboratory Results 07/09/18 11:58 07/09/18 04:00 07/09/18 07/10/18 07/11/18 05:59 05:59 05:59 Intake Total 500 2330 Output Total 1100 Balance 500 1230 - Physical Exam Constitutional: no apparent distress, appears nourished, not in pain Eyes: PERRL, anicteric sclera, EOMI Ears, Nose, Mouth, Throat: moist mucous membranes, hearing normal, ears appear normal, no oral mucosal ulcers Cardiovascular: regular rate and rhythym, no murmur, rub, or gallop Respiratory: no respiratory distress, no rales or rhonchi, clear to auscultation Gastrointestinal: normoactive bowel sounds, soft, non-tender abdomen, no palpable masses Genitourinary: no bladder fullness, no bladder tenderness, no renal bruits Skin: no rashes or abrasions, no fluctuance, no induration Musculoskeletal: full muscle strength, no muscle tenderness, normal joint ROM Neurologic: AAOx3, sensation intact bilaterally Psychiatric: interacting appropriately, not anxious, not encephalopathic, thought process linear Lymph, Heme, Immunologic: no cervical LAD, no supraclavicular LAD ICD10 Worksheet Patient Problems: Problems Problem Status Onset Abdominal pain Acute Nausea & vomiting Acute Clostridium difficile infection Acute Crohn's colitis Acute SIRS (systemic inflammatory response syndrome) Acute
--- NOTE | 2018-07-10 18:40 | SOAPPROG ---
SOAP Progress Note Assessment/Plan: Addendum: I was able to contact her [place] doctor in [place] Gunnar Everett, and his CHISEL WORKER, Aurora Ding. They are in agreement that she needs a colonoscopy at this point (with an EGD as well). I resaw [place], and relayed the above to her. Dr. Everett also messaged her, with this as well. She wishes to think about it more, and discuss with her family. Over 44 minutes of direct care spent today at the pt.'s bedside. 07/10/18 18:37 Objective: Vital Signs Temp Pulse Resp BP Pulse Ox 37.2 C 81 16 91/56 L 94 07/10/18 17:00 07/10/18 17:00 07/10/18 17:00 07/10/18 17:00 07/10/18 17:00 Laboratory Results 07/09/18 11:58 07/09/18 04:00 07/09/18 07/10/18 07/11/18 05:59 05:59 05:59 Intake Total 500 2330 Output Total 1100 Balance 500 1230 ICD10 Worksheet Patient Problems: Problems Problem Status Onset Abdominal pain Acute Nausea & vomiting Acute Clostridium difficile infection Acute Crohn's colitis Acute SIRS (systemic inflammatory response syndrome) Acute
[2018-07-10] MEDS: LEVONORGESTREL ETHIN ESTRADIOL PO SCH (22:11)
[2018-07-11] MEDS: oxyCODONE IR 5 MG TAB PO PRN ×7 (02:00→21:52)
[2018-07-11 05:31] LABS: PLATELET COUNT 374 10^3/uL (150-400)
[2018-07-11] MEDS: MULTIVITAMINS 1 EACH TAB PO SCH (09:26)
[2018-07-11] MEDS: POLYETHYLENE GLYCOL 3350 17 GM PKT PO SCH (09:26)
[2018-07-11] MEDS: SERTRALINE HCL 100 MG TAB PO SCH (09:27)
[2018-07-11] MEDS: predniSONE 20 MG TAB PO SCH (09:28)
--- NOTE | 2018-07-11 12:25 | SOAPPROG ---
SOAP Progress Note Assessment/Plan: Right-sided abdominal pain. Better today. Overall, suspect mostly functional (with possibly a psychosomatic contribution) . The other possibility is some active Crohn's, not appreciated on CT, lab work, etc., and not responsive to her steroids and present dose of remicade, but less likely. - again, recommend colonoscopy, as a more definitive way to see if active Crohn' s vs. functional. I would also do an EGD at the same time (for her epigastric pain component, past vomiting) I discussed this with her G.I. doc's team in [facility] and they agree. They [place]. - upon discharge, recommend: a) prednisone 40 mg daily, until she sees her [place] ribbon weaver b) dicyclomine prn abdominal pain c) miralax daily d) please copy her complete chart, imaging, labs, etc., for the above physician , Dr. Gunnar Everett, and his BLANKING PRESS OPERATOR, Aurora Ding, who are at [facility]. I will sign off; please call if we can be of further help [phone] Thanks! 07/11/18 12:20 Subjective: cc: right-sided abdominal pain. Pain better. Tolerating p.o. Ambulating. No rigors, chills, sweats. Objective: Vital Signs Temp Pulse Resp BP Pulse Ox 36.8 C 93 16 101/62 94 07/11/18 09:28 07/11/18 09:28 07/11/18 09:28 07/11/18 09:28 07/11/18 09:28 Laboratory Results 07/11/18 05:00 07/11/18 05:00 07/10/18 07/11/18 07/12/18 05:59 05:59 05:59 Intake Total 2330 400 Output Total 1100 Balance 1230 400 Physical Exam - Physical Exam General Appearance: WD/WN, alert, no apparent distress EENT: PERRL/EOMI, normal ENT inspection, pharynx normal, TMs normal Neck: non-tender, full range of motion, supple, normal inspection Respiratory: chest non-tender, lungs clear, normal breath sounds Cardiac/Chest: normal peripheral pulses, regular rate, rhythm Peripheral Pulses: 2+: carotid (R), carotid (L), femoral (R), femoral (L), dorsalis-pedis (R), dorsalis-pedis (L) Abdomen: normal bowel sounds, non-tender, soft Pelvic Exam: deferred Rectal: deferred Back: Normal inspection Skin: normal color, warm/dry Lymphatic: no adenopathy Extremities: normal range of motion, non-tender, normal inspection, normal capillary refill Neuro/Psych: no motor/sensory deficits, alert, normal mood/affect, oriented x 3 ICD10 Worksheet Patient Problems: Problems Problem Status Onset Abdominal pain Acute Nausea & vomiting Acute Clostridium difficile infection Acute Crohn's colitis Acute SIRS (systemic inflammatory response syndrome) Acute
--- NOTE | 2018-07-11 15:31 | HOSPPROG ---
Hospitalist Progress Note Assessment/Plan: 22yo F with Crohn's on remicade, recent ileal resection 01/2018 presents with RLQ abdominal pain and obstipation #right sided abdominal pain: etiology unclear. Gi consulted who thinks etiology may be related to functional superimposed with possible mild flare of underlying crohns and some psychosomatic component. GI discussed with patients trauma therapist in [facility] who agrees patient needs upper/lower endoscopy. patient prefers to have this done in [facility]. # new-terminal ileal Crohn's: as above, followed by GI, hx of ileal colonic resection for ileal stenosis, have been attempting to avoid repeat colonoscopy as patient has her care in [place] and would like to have her care there if possible.GI involved. -GI recommends colonoscopy and endoscopy, patient so far refusing. - discharge once tolerating PO and pain under control to follow up with GI in [facility] -cont pred 40mg daily #bacturia: asymptomatic with multiple different bacteria and low colony counts on urine culture, repeat UA clean catch wnl, off abx. #Recent ovarian cyst: None noted on pelvic US currently. #Anxiety: Continue prn zoloft, xanax. #Anemia: Somewhat lower than prior. No further rectal bleeding while here. # IP status # Further hx obtained from patients mother present at bedside. Subjective: pain better today. Patient comfortably drinking a venti francine latte in bed. Objective: Vital Signs Temp Pulse Resp BP Pulse Ox 36.8 C 93 16 101/62 94 07/11/18 09:28 07/11/18 09:28 07/11/18 09:28 07/11/18 09:28 07/11/18 09:28 Laboratory Results 07/11/18 05:00 07/11/18 05:00 07/10/18 07/11/18 07/12/18 05:59 05:59 05:59 Intake Total 2330 400 Output Total 1100 Balance 1230 400 - Physical Exam Constitutional: no apparent distress, appears nourished, not in pain Eyes: PERRL, anicteric sclera, EOMI Ears, Nose, Mouth, Throat: moist mucous membranes, hearing normal, ears appear normal, no oral mucosal ulcers Cardiovascular: regular rate and rhythym, no murmur, rub, or gallop Respiratory: no respiratory distress, no rales or rhonchi, clear to auscultation Gastrointestinal: normoactive bowel sounds, soft, non-tender abdomen, no palpable masses Genitourinary: no bladder fullness, no bladder tenderness, no renal bruits Skin: no rashes or abrasions, no fluctuance, no induration Musculoskeletal: full muscle strength, no muscle tenderness, normal joint ROM Neurologic: AAOx3, sensation intact bilaterally Psychiatric: interacting appropriately, not anxious, not encephalopathic, thought process linear Lymph, Heme, Immunologic: no cervical LAD, no supraclavicular LAD ICD10 Worksheet Patient Problems: Problems Problem Status Onset Abdominal pain Acute Nausea & vomiting Acute Clostridium difficile infection Acute Crohn's colitis Acute SIRS (systemic inflammatory response syndrome) Acute
--- NOTE | 2018-07-11 16:49 | ASMTCMCOM ---
CM Note CM Note Notes: Patient is planning on follow up in [facility] for colonoscopy and endoscopy. Discharge plan will be independent once patient's tolerating PO and her pain is under control. CM available for any d/c needs that might arise. Date Signed: 07/11/2018 04:48 PM Electronically Signed By:Judit Shannon LCSW
[2018-07-11] MEDS: ONDANSETRON DISINTEGRATING 4 MG TAB PO PRN (20:30)
[2018-07-11] MEDS: LEVONORGESTREL ETHIN ESTRADIOL PO SCH (20:31)
[2018-07-12] MEDS: oxyCODONE IR 5 MG TAB PO PRN ×7 (01:55→22:52)
[2018-07-12] MEDS: SERTRALINE HCL 100 MG TAB PO SCH (09:38)
[2018-07-12] MEDS: MULTIVITAMINS 1 EACH TAB PO SCH (09:38)
[2018-07-12] MEDS: predniSONE 20 MG TAB PO SCH (09:39)
[2018-07-12] MEDS: POLYETHYLENE GLYCOL 3350 17 GM PKT PO SCH (09:39)
[2018-07-12] MEDS: DICYCLOMINE 10 MG CAP PO PRN ×2 (09:54→16:35)
--- NOTE | 2018-07-12 14:18 | HOSPPROG ---
Hospitalist Progress Note Assessment/Plan: 22yo F with Crohn's on remicade, recent ileal resection 01/2018 presents with RLQ abdominal pain and obstipation #right sided abdominal pain: etiology unclear. Gi consulted who thinks etiology may be related to functional superimposed with possible mild flare of underlying crohns and some psychosomatic component. GI discussed with patients electro plater in [facility] who agrees patient needs upper/lower endoscopy. patient prefers to have this done in [facility]. # new-terminal ileal Crohn's: as above, followed by GI, hx of ileal colonic resection for ileal stenosis, have been attempting to avoid repeat colonoscopy as patient has her care in [place] and would like to have her care there if possible.GI involved. -GI recommends colonoscopy and endoscopy, patient waiting to have this done in [facility]. -discharge once tolerating PO and pain under control to follow up with GI in [facility] -cont pred 40mg daily, which can be tapered and stopped by her GI in [facility]. -patient not eating today, still with ab pain. #bacturia: asymptomatic with multiple different bacteria and low colony counts on urine culture, repeat UA clean catch wnl, off abx. #Recent ovarian cyst: None noted on pelvic US currently. #Anxiety: Continue prn zoloft, xanax. #Anemia: Somewhat lower than prior. No further rectal bleeding while here. # IP status # Further hx obtained from patients mother present at bedside. Subjective: patient not able to tolerate po today, limited by pain. Objective: Vital Signs Temp Pulse Resp BP Pulse Ox 37.0 C 86 16 100/55 L 97 07/12/18 09:00 07/12/18 09:00 07/12/18 09:00 07/12/18 09:00 07/12/18 09:00 Laboratory Results 07/11/18 05:00 07/11/18 05:00 07/11/18 07/12/18 07/13/18 05:59 05:59 05:59 Intake Total 400 2900 Output Total 4 Balance 400 2896 - Physical Exam Constitutional: no apparent distress, appears nourished, not in pain Eyes: PERRL, anicteric sclera, EOMI Ears, Nose, Mouth, Throat: moist mucous membranes, hearing normal, ears appear normal, no oral mucosal ulcers Cardiovascular: regular rate and rhythym, no murmur, rub, or gallop Respiratory: no respiratory distress, no rales or rhonchi, clear to auscultation Gastrointestinal: normoactive bowel sounds, soft, non-tender abdomen, no palpable masses Genitourinary: no bladder fullness, no bladder tenderness, no renal bruits Skin: no rashes or abrasions, no fluctuance, no induration Musculoskeletal: full muscle strength, no muscle tenderness, normal joint ROM Neurologic: AAOx3, sensation intact bilaterally Psychiatric: interacting appropriately, not anxious, not encephalopathic, thought process linear Lymph, Heme, Immunologic: no cervical LAD, no supraclavicular LAD ICD10 Worksheet Patient Problems: Problems Problem Status Onset Abdominal pain Acute Nausea & vomiting Acute Clostridium difficile infection Acute Crohn's colitis Acute SIRS (systemic inflammatory response syndrome) Acute
[2018-07-12] MEDS: ONDANSETRON DISINTEGRATING 4 MG TAB PO PRN (19:53)
[2018-07-12] MEDS: LEVONORGESTREL ETHIN ESTRADIOL PO SCH (19:54)
[2018-07-13] MEDS: oxyCODONE IR 5 MG TAB PO PRN ×2 (02:09→09:14)
[2018-07-13 09:07] VITALS: BP 86/53
[2018-07-13] MEDS: POLYETHYLENE GLYCOL 3350 17 GM PKT PO SCH (09:10)
[2018-07-13] MEDS: predniSONE 20 MG TAB PO SCH (09:15)
[2018-07-13] MEDS: SERTRALINE HCL 100 MG TAB PO SCH (09:17)
[2018-07-13] MEDS: MULTIVITAMINS 1 EACH TAB PO SCH (09:17)
[2018-07-13] MEDS: DICYCLOMINE 10 MG CAP PO PRN (10:27)
--- NOTE | 2018-07-13 15:39 | ASMTLACE ---
FERNANDO Length of stay for Answers: 7-13 days current admission Acuity / Level of Answers: Yes Care: Did the patient have an inpatient admission? Comorbidities - select Answers: Other Notes: Crohn's disease all that apply # of Emergency department Answers: 1-2 visits in the last 6 months Social determinants Answers: Mental health diagnosis (anxiety, depression, pers onality disorders, etc.) Score: 13 Date Signed: 07/13/2018 03:39 PM Electronically Signed By:Marcy Simon RN
--- NOTE | 2018-07-13 16:29 | PDDCSUM ---
Discharge Summary Discharge Summary: Discharge diagnosis Abdominal pain Crohn's disease Recent ruptured ovarian cyst ADD Patient is a 22-year-old female with past medical history of Crohn's disease presented to the emergency room with abdominal pain and hematochezia. CT of her abdomen showed no evidence of any acute colitis. Gastroenterology was consulted. She was due for her Remicade and so that was given while she was admitted. She was started on prednisone for presumed Crohn's flare. Gastroenterology felt that she likely needed in upper and lower endoscopy. However the patient lives in [facility] and preferred to have her netezza architect in [facility] of perform her endoscopy so this was deferred. She continued to have abdominal pain was not able to eat and drink well enough for discharge. However over the course of her admission her pain improved and she was able to slowly reintroduce food enough to the point that she was able to meet her nutritional needs.. Gastroenterology here discussed her case with her netezza architect in [facility] and they concurred that she needed a repeat upper and lower endoscopy. She was scheduled to follow up with her GI doc in [facility] on July 21. She was discharged home to follow up with her netezza architect in [facility]. She was kept on prednisone to be tapered and stopped at the direction of her netezza architect at home. Disposition Home independent New medication Prednisone 40 mg daily Oxycodone 10 mg q.6 p.r.n. Pain for 8 days I spent over 30 min on the discharge of this patient
== END 2018-07-13 12:13 | disposition home or self-care (01) | DRG 387 ==
LOC: F1N 21:32 → OBSVTOIN 07-05 10:10
PROVIDERS: ADMIT Internal Medicine; ATTEND Internal Medicine
DX: K50.90 Crohn's disease, unspecified, without complications (principal); D64.9 Anemia, unspecified; F41.9 Anxiety disorder, unspecified; F98.8 Other specified behavioral and emotional disorders with onset usually occurring in childhood and adolescence
CPT/HCPCS: 82435-PO; 82565-PO; 82947-PO; 84132-PO; 84295-PO; 84481-90; 84520-PO; 85014-ER; 96365; J0696; J1170; J1885; J2405; J2920; J7512; Q5103; Q9967